=== PATIENT | female | born 1965 | race African-American/Black ===

== ENCOUNTER → 2019-03-06 | Day surgery (SDC) | payer OTHER ==
--- NOTE | 2019-03-07 15:57 | PATH ---
Surgical Pathology Report Patient Name: PACHECO RAMOS [facility]. Rec. #: [id number] /Age/Gender: 1965 (Age: 53) / F Account: [id number] Location: RADIOLOGY [facility] Taken: 03/06/2019 Received: 03/06/2019 Reported: 03/07/2019 Physicians: Marisol Lainez M.D. Specimen(s) Received LEFT BREAST 4:00 3CM MASS U/S GUIDED CORE BX Clinical History Nonpalpable lesion Ultrasound findings: Highly suspicious/malignant Final Diagnosis LEFT BREAST, 4:00, ULTRASOUND GUIDED NEEDLE CORE BIOPSY: POORLY DIFFERENTIATED INVASIVE DUCTAL CARCINOMA WITH AREAS WITH AN INVASIVE MICROPAPILLARY PATTERN, MEASURING UP TO 0.9 CM IN LENGTH MEASURED ON THE SLIDE. Results of Estrogen Receptor (ER) and Progesterone Receptor (NM) studies performed at [facility] are as follows: ER (clone [id number] mouse monoclonal antibody by [employer]): 80% nuclear staining with moderate intensity (Positive). NM (clone16 mouse monoclonal antibody by [employer]): 80 % nuclear staining with strong intensity (Positive). Positive and negative controls (internal if applicable) show appropriate results. Formalin fixation and cold ischemic times are within current ASCO/CAP recommendations for ER, NM and Her2 testing. Comment: This case was discussed with Dr. Simons on March 07, 2019. Results of Her2 and Ki67 studies will be reported separately in an addendum. Electronically Signed Harpreet Vega M.D. Addendum Reported: 03/09/2019 Addendum Diagnosis Results of Her2 (IHC) & Ki-67 studies performed at [place], [place] ([id number]) are as follows: Her2 IHC (EP3 from [employer], formerly known as [id number], using Sanders Polymer Refine detection kit): 2+ Equivocal Ki-67:~25% (intermediate proliferative index) Positive and negative controls (internal if applicable) show appropriate results. Results of Her2 FISH studies will be reported separately in an addendum. Harpreet Vega M.D. Gross Description Received in formalin labeled "left 4:00," are 3 france-yellow, cylindrical portions of fibroadipose tissue ranging from 0.9-1.1 cm in length and averaging 0.1 cm in diameter. The specimens are submitted in toto in one cassette. Time to formalin fixation: Less than one minute Total formalin fixation time: Approximately 7 hours. DL03/06/2019 [facility]03/06/2019
== END | disposition home or self-care (01) ==
LOC: JRADUS-SUR 10:08
PROVIDERS: ATTEND Internal Medicine
PROC: 0HBU3ZX Excision of Left Breast, Percutaneous Approach, Diagnostic (ICD-10-PCS; principal; 2019-03-06)
DX: C50.912 Malignant neoplasm of unspecified site of left female breast (principal); Z17.0 Estrogen receptor positive status [ER+]
CPT/HCPCS: 19083; 88305-TC; 88342-TC

== ENCOUNTER 2019-04-11 12:31 | Day surgery (SDC) | payer OTHER ==
[2019-04-07 15:05] VITALS: BMI 31.9
[2019-04-11] MEDS ORDERED: LIDOCAINE HCL 1%, 10 MG/ML (20ML VIAL) ONE ×2 (13:14→15:23)
[2019-04-11] MEDS ORDERED: HEPARIN NA (PORCINE) 5,000 UNITS/ML 1ML VIAL ONE (13:14)
[2019-04-11] MEDS ORDERED: MIDAZOLAM HCL 2 MG/2 ML SINGLE DOSE VIAL ONE (13:20)
[2019-04-11] MEDS ORDERED: KETOROLAC TROMETHAMINE 30 MG/1 ML VIAL IVPUSH PRN (13:47)
[2019-04-11] MEDS ORDERED: ONDANSETRON 4 MG/2 ML VIAL IVPUSH PRN (13:47)
[2019-04-11] MEDS ORDERED: SUCCINYLCHOLINE CHLORIDE 200 MG/10 ML SYRINGE ONE (13:53)
[2019-04-11] MEDS ORDERED: ceFAZolin SODIUM 1 GM VIAL ONE (13:53)
[2019-04-11] MEDS ORDERED: DEXAMETHASONE SOD PHOSPHATE 4 MG/1 ML VIAL ONE (13:55)
[2019-04-11] MEDS ORDERED: DEXTROSE 5%-0.45% SALINE 1,000 ML IV SCH (14:00)
[2019-04-11] MEDS ORDERED: PROPOFOL 20 ML ONE ×3 (14:17→15:00)
[2019-04-11] MEDS ORDERED: BUPIVACAINE HCL/PF 0.5% (5MG/ML) 10 ML VIAL ONE (15:25)
[2019-04-11] MEDS ORDERED: oxyCODONE HCL 5 MG TABLET PO PRN ×2 (16:29→16:30)
[2019-04-11] MEDS ORDERED: LACTATED RINGERS SOLUTION 1,000 ML IV SCH (16:30)
[2019-04-11 16:59] VITALS: PULSE 64
[2019-04-11 17:38] VITALS: BP 130/84; TEMP 98
--- NOTE | 2019-04-11 22:36 | OP ---
DATE OF OPERATION: 04/11/2019 PREOPERATIVE DIAGNOSIS: Left breast cancer, low outer quadrant. POSTOPERATIVE DIAGNOSIS: Left breast cancer, low outer quadrant. PROCEDURE: Right internal jugular Port-A-Cath placement using Seldinger technique under fluoroscopy for IV venous access and chemotherapy. ANESTHESIA: Local with IV sedation. SURGEON: Jared Sheppard MD. STEAM PLANT RECORDS CLERK: ИВАН Richards. COMPLICATIONS: There were no complications. DESCRIPTION OF PROCEDURE: Briefly, the patient is a 53-year-old G4, P4, post menopausal female of -[place]izen [place] descent with a family history with her mother had breast cancer at age 43. The patient was found to have a density in the lower outer aspect of the left breast which was seen on ultrasound measuring about 2.3 x 1.4 cm. An ultrasound guided core biopsy showed a poorly differentiated invasive ductal cancer which was ER/AL positive but HER2 positive by FISH with a Ki-67 of 25%. MRI showed satellite lesions in the lateral aspect of the left breast, and she was seen by medical oncology and it was decided to move forward with neoadjuvant chemotherapy. She comes in now for Port-A-Cath placement for IV access. The patient was brought to the holding area for ambulatory surgery on April 11, 2019. In the holding area, site verification was made and informed consent was obtained. She was brought into the operating room and laid on the OR table in a supine position. She had compression stockings placed on the lower extremities, was given IV sedation, and the right upper chest wall and neck were sterilely prepped and draped in usual fashion. She was given a gram of Ancef prior to incision. She had the right arm tucked at her side and had a rolled sheet placed under her midline spine. Once she was properly anesthetized 1% lidocaine was given underneath the right clavicle. An attempt was made to access the right subclavian vein. We used ultrasound, still were not able to access the subclavian vein on the right side. At this point, it was felt that an IJ line would be needed, and under ultrasound guidance the right internal jugular vein was eventually accessed and wire threaded down into the superior vena cava under fluoroscopy without difficulty. The wire was clipped to the drape. At this point, more 1% lidocaine was given underneath the right clavicle, and a 3-cm incision was made, and dissection was undertaken to form an infraclavicular pocket. Hemostasis was achieved. The catheter was then tunneled between the infraclavicular pocket to the access site in the right neck using tonsil clamp as well as the tunneler. A small incision had to be made in between the tunnel to get the catheter threaded completely. The catheter was then cut to the appropriate length and attached to the Port-A-Cath chamber. This was placed into infraclavicular pocket and sutured in place using 2 separate Prolene sutures. At this point, the tearaway sheath introducer was placed over the wire under fluoroscopy without difficulty, and the wire and the dilator were removed. The catheter was then threaded down to the tearaway sheath, leaving the catheter in good position in the superior vena cava, and the tearaway sheath was torn away. There was a small kink in the catheter which had to be fixed. There was excellent blood flow from the catheter and was flushed with dilute heparin at 10 units per mL. At this point, the Nur needle was used to access the Port-A-Cath chamber, and 1.5 mL of concentrated heparin at 1000 units per mL were instilled into the Port-A-Cath. The wounds were then closed using interrupted 3-0 deep dermal Vicryl suture and a running 4-0 subcuticular Biosyn suture. Mastisol and Steri-Strips were applied over the wound with a compressive dressing placed over this. The patient was awake and alert at the end of the procedure and brought back to the post anesthesia care unit in stable condition. Estimated blood loss was minimal. Postoperative chest x-ray showed the line in good position with no pneumo- or hemothorax, and the line may be used as soon as needed. All sponge and needle counts were correct at the end of the case. The patient will be discharged home the same day, will follow up in the office in 1 week for a formal wound evaluation. JARED SHEPPARD M.D. [id number]
== END 2019-04-11 17:55 | disposition home or self-care (01) ==
LOC: FASU 12:31
PROVIDERS: ATTEND Surgery Surgical Oncology
PROC: B548ZZA Ultrasonography of Superior Vena Cava, Guidance (ICD-10-PCS; 2019-04-11)
PROC: B519ZZZ Fluoroscopy of Inferior Vena Cava (ICD-10-PCS; 2019-04-11)
PROC: 02HV33Z Insertion of Infusion Device into Superior Vena Cava, Percutaneous Approach (ICD-10-PCS; principal; 2019-04-11 14:04)
DX: C50.512 Malignant neoplasm of lower-outer quadrant of left female breast (principal)
CPT/HCPCS: 36561; 76937; 77001; C1751; 71045-TC-FY; 84703; 94760; J1644

== ENCOUNTER 2019-04-21 05:39 | Day surgery (SDC) | payer OTHER ==
[2019-04-21] MEDS ORDERED: DEXAMETHASONE SODIUM PHOSPHATE IVPB ONE (10:00)
[2019-04-21] MEDS ORDERED: [UNRECOGNIZED DRUG - OTHER] IVPB ONE (10:00)
[2019-04-21] MEDS ORDERED: ONDANSETRON IVPB ONE (10:00)
[2019-04-21] MEDS ORDERED: ACETAMINOPHEN 325 MG TABLET (FP) PO ONE (10:00)
[2019-04-21] MEDS ORDERED: TRASTUZUMAB ANNS IVPB ONE (10:30)
[2019-04-21] MEDS ORDERED: SODIUM CHLORIDE IVPB ONE (10:30)
[2019-04-21] MEDS ORDERED: PACLITAXEL 168 MG in SODIUM CHLORIDE 250 ML IVPB ONE (12:00)
[2019-04-21] MEDS ORDERED: PORTA CATH FLUSH 10 ML IVPUSH ONE (16:18)
[2019-04-21 16:30] VITALS: BP 125/70; PULSE 61
[2019-04-21 16:32] VITALS: TEMP 98.5
== END 2019-04-21 15:40 | disposition home or self-care (01) ==
LOC: JONCCHEMO 05:39 → J7W 09:16 → JONCCHEMO 15:40
PROVIDERS: ATTEND Internal Medicine Hematology & Oncology
PROC: 3E04305 Introduction of Other Antineoplastic into Central Vein, Percutaneous Approach (ICD-10-PCS; principal; 2019-04-21)
PROC: 3E043GC Introduction of Other Therapeutic Substance into Central Vein, Percutaneous Approach (ICD-10-PCS; 2019-04-21)
DX: Z51.11 Encounter for antineoplastic chemotherapy (principal); C50.912 Malignant neoplasm of unspecified site of left female breast
CPT/HCPCS: 96367; 96413; 96415; 96417; Q5117

== ENCOUNTER 2019-04-27 09:04 | Day surgery (SDC) | payer OTHER ==
[2019-04-27] MEDS ORDERED: ACETAMINOPHEN 325 MG TABLET (FP) PO ONE (14:00)
[2019-04-27] MEDS ORDERED: DEXAMETHASONE SODIUM PHOSPHATE IVPB ONE (14:00)
[2019-04-27] MEDS ORDERED: [UNRECOGNIZED DRUG - OTHER] IVPB ONE (14:00)
[2019-04-27] MEDS ORDERED: ONDANSETRON IVPB ONE (14:00)
[2019-04-27] MEDS ORDERED: SODIUM CHLORIDE IVPB ONE (14:30)
[2019-04-27] MEDS ORDERED: TRASTUZUMAB ANNS IVPB ONE (14:30)
[2019-04-27 14:59] LABS: BASO % 0.5 % (0-2.0); EOS % 6.3 % (0-4.5); HEMATOCRIT 32.3 % (32.4-45.2); HEMOGLOBIN 10.1 GM/dL (10.7-15.3); LYMPH % 37.5 % (8-40); MCH 25.1 pg (25.7-33.7); MCHC 31.3 g/dl (32.0-36.0); MEAN CELL VOLUME 80.1 fl (80-96); MONO % 2.6 % (3.8-10.2); NEUT % 53.1 % (42.8-82.8); PLATELET COUNT 229 K/MM3 (134-434); RBC 4.04 M/mm3 (3.60-5.2); RDW 14.3 % (11.6-15.6); WHITE BLOOD COUNT 4.5 K/mm3 (4.0-10.0)
[2019-04-27] MEDS ORDERED: PACLITAXEL 168 MG in SODIUM CHLORIDE 250 ML IVPB ONE (15:00)
[2019-04-27 18:16] VITALS: BP 123/57; PULSE 87; TEMP 98.2
[2019-04-27] MEDS ORDERED: PORTA CATH FLUSH 10 ML IVPUSH ONE ×2 (18:22→19:04)
== END 2019-04-27 19:07 | disposition home or self-care (01) ==
LOC: JONCCHEMO 09:04 → J7W 14:11 → JONCCHEMO 19:07
PROVIDERS: ATTEND Nurse Practitioner Family
PROC: 3E04305 Introduction of Other Antineoplastic into Central Vein, Percutaneous Approach (ICD-10-PCS; principal; 2019-04-27)
PROC: 3E043GC Introduction of Other Therapeutic Substance into Central Vein, Percutaneous Approach (ICD-10-PCS; 2019-04-27)
DX: Z51.11 Encounter for antineoplastic chemotherapy (principal); C50.912 Malignant neoplasm of unspecified site of left female breast
CPT/HCPCS: 36415; 85025; 96367; 96413; 96417; Q5117

== ENCOUNTER 2019-05-05 05:52 | Day surgery (SDC) | payer OTHER ==
[2019-05-05] MEDS ORDERED: [UNRECOGNIZED DRUG - OTHER] IVPB ONE (10:00)
[2019-05-05] MEDS ORDERED: ACETAMINOPHEN 325 MG TABLET (FP) PO ONE (10:00)
[2019-05-05] MEDS ORDERED: DEXAMETHASONE SODIUM PHOSPHATE IVPB ONE (10:00)
[2019-05-05] MEDS ORDERED: ONDANSETRON IVPB ONE (10:00)
[2019-05-05] MEDS ORDERED: SODIUM CHLORIDE IVPB ONE (10:30)
[2019-05-05] MEDS ORDERED: TRASTUZUMAB ANNS IVPB ONE (10:30)
[2019-05-05] MEDS ORDERED: PACLITAXEL 168 MG in SODIUM CHLORIDE 250 ML IVPB ONE (11:00)
[2019-05-05] MEDS ORDERED: ACETAMINOPHEN 325 MG TABLET (FP) ONE (14:40)
[2019-05-05 17:28] VITALS: TEMP 98.9
[2019-05-05] MEDS ORDERED: PORTA CATH FLUSH 10 ML IVPUSH ONE (17:28)
[2019-05-05 17:42] VITALS: BP 134/80; PULSE 75
== END 2019-05-05 17:10 | disposition home or self-care (01) ==
LOC: JONCCHEMO 05:52 → J7W 14:07 → JONCCHEMO 17:10
PROVIDERS: ATTEND Nurse Practitioner Family
DX: Z51.11 Encounter for antineoplastic chemotherapy (principal); C50.912 Malignant neoplasm of unspecified site of left female breast
CPT/HCPCS: 96367; 96413; 96417; J2405; Q5117

== ENCOUNTER 2019-09-01 17:46 | Day surgery (SDC) | payer OTHER ==
[2019-09-01 17:03] VITALS: TEMP 97.9
[~2019-09-01 17:46] MED LIST: ACETAMINOPHEN 325 MG TABLET (FP) PO ONE; DIPHENHYDRAMINE 50 MG in SODIUM CHLORIDE 50 ML IVPB ONE; SODIUM CHLORIDE IVPB ONE; TRASTUZUMAB ANNS IVPB ONE
[2019-09-01 18:05] VITALS: BP 159/71; PULSE 66
== END 2019-09-01 17:51 | disposition home or self-care (01) ==
LOC: JONCCHEMO 17:46
PROVIDERS: ATTEND Internal Medicine Hematology & Oncology
DX: Z51.11 Encounter for antineoplastic chemotherapy (principal); C50.912 Malignant neoplasm of unspecified site of left female breast; C77.3 Secondary and unspecified malignant neoplasm of axilla and upper limb lymph nodes; E11.9 Type 2 diabetes mellitus without complications
CPT/HCPCS: 96375; 96413; Q5117

== ENCOUNTER 2019-09-19 07:06 | Day surgery (SDC) | payer OTHER ==
[2019-09-19] MEDS ORDERED: ACETAMINOPHEN 325 MG TABLET (FP) PO ONE (09:30)
[2019-09-19] MEDS ORDERED: DIPHENHYDRAMINE 50 MG in SODIUM CHLORIDE 50 ML IVPB ONE (09:30)
[2019-09-19] MEDS ORDERED: TRASTUZUMAB ANNS IVPB ONE (10:00)
[2019-09-19] MEDS ORDERED: SODIUM CHLORIDE IVPB ONE (10:00)
[2019-09-19 18:28] VITALS: BP 155/86; PULSE 66; TEMP 98.5
[2019-09-19] MEDS ORDERED: PORTA CATH FLUSH 10 ML IVPUSH ONE (18:28)
== END 2019-09-19 18:00 | disposition home or self-care (01) ==
LOC: JONCCHEMO 07:06
PROVIDERS: ATTEND Internal Medicine Hematology & Oncology
DX: Z51.11 Encounter for antineoplastic chemotherapy (principal); C50.912 Malignant neoplasm of unspecified site of left female breast; C77.3 Secondary and unspecified malignant neoplasm of axilla and upper limb lymph nodes; E11.9 Type 2 diabetes mellitus without complications
CPT/HCPCS: 36415; 85610; 96367; 96413; Q5117

== ENCOUNTER 2019-09-21 09:39 | Day surgery (SDC) | payer OTHER ==
[2019-09-13 11:07] VITALS: BMI 32.5
[2019-09-21] MEDS ORDERED: ONDANSETRON 4 MG/2 ML VIAL IVPUSH PRN (10:34)
[2019-09-21] MEDS ORDERED: KETOROLAC TROMETHAMINE 30 MG/1 ML VIAL IVPUSH PRN (10:34)
[2019-09-21] MEDS ORDERED: DEXTROSE 5%-0.45% SALINE 1,000 ML IV SCH (10:45)
[2019-09-21] MEDS ORDERED: fentaNYL CITRATE 250 MCG/5 ML VIAL ONE (12:30)
[2019-09-21] MEDS ORDERED: MIDAZOLAM HCL 2 MG/2 ML SINGLE DOSE VIAL ONE (12:30)
[2019-09-21] MEDS ORDERED: ISOSULFAN BLUE 10 MG/ML VIAL SQ ONE (12:46)
[2019-09-21] MEDS ORDERED: DEXAMETHASONE SOD PHOSPHATE 4 MG/1 ML VIAL ONE (12:55)
[2019-09-21] MEDS ORDERED: ONDANSETRON 4 MG/2 ML VIAL ONE (12:55)
[2019-09-21] MEDS ORDERED: BUPIVACAINE HCL/PF 0.5% (5MG/ML) 10 ML VIAL ONE (13:47)
[2019-09-21] MEDS ORDERED: EPHEDRINE SULFATE/0.9% NACL/PF 50 MG/10 ML SYRINGE NR ONE (14:32)
[2019-09-21] MEDS ORDERED: oxyCODONE HCL 5 MG TABLET PO PRN (14:44)
[2019-09-21] MEDS ORDERED: LACTATED RINGERS SOLUTION 1,000 ML IV SCH (14:45)
[2019-09-21] MEDS ORDERED: ACETAMINOPHEN 1000 MG/100 ML VIAL (NON FORMULARY) IVPB SCH (14:45)
[2019-09-21] MEDS ORDERED: KETOROLAC TROMETHAMINE 30 MG/1 ML VIAL ONE (15:04)
[2019-09-21] MEDS ORDERED: ACETAMINOPHEN INJECTION 100 ML IVPB ONE (15:15)
--- NOTE | 2019-09-21 15:27 | SURG ---
Surgery Bpm Developer Note Bpm Developer: Gaby Cooper PA-C Date of Service: 09/21/19 Diagnosis: Acquired chest wall deformity s/p wide excision lumpectomy/partial mastectomy. Procedure: breast tissue rearrangement with reduction pattern I was present for the entirety of the operative procedure. For further detail, please refer to operative report. Visit type - Case Type Case Type: Scheduled - Emergency Emergency Visit: No - New patient This patient is new to me today: Yes Date on this admission: 09/21/19
--- NOTE | 2019-09-21 15:29 | OP ---
Operative Note - Note: Operative Date: 09/21/19 Pre-Operative Diagnosis: breast cancer Operation: left breast tissue rearrangement with reduction pattern Post-Operative Diagnosis: Same as Pre-op Surgeon: David Hendrix Cannon Crewmember: Gaby Cooper Anesthesiologist/FILLING OPERATOR: Ginette Linares Anesthesia: General Estimated Blood Loss (mls): 100 Fluid Volume Replaced (mls): 1,400 Operative Report Dictated: Yes
--- NOTE | 2019-09-21 16:07 | OP ---
DATE OF OPERATION: 09/21/2019 PREOPERATIVE DIAGNOSIS: Left breast cancer lower outer quadrant, status post neoadjuvant chemotherapy. POSTOPERATIVE DIAGNOSIS: Left breast cancer lower outer quadrant, status post neoadjuvant chemotherapy. PROCEDURE: Left breast partial mastectomy through a reduction mastopexy approach with left axillary sentinel lymph node biopsy and reduction mastopexy. ANESTHESIA: General laryngeal mask airway anesthesia. PRIMARY SURGEON: Bird Diane MD DIRECTOR ADULT: Saima Walter, physician day care assistant COMPLICATIONS: There were no complications. INDICATIONS: Briefly, the patient is a 53-year-old G4, P4 postmenopausal female of descent with a strong family history with her mother who had breast cancer at age 43 and maternal aunts had questionable history of cancer. The patient underwent a mammography and ultrasound in February 2019 showing irregular density in the outer aspect of the left breast 4 o'clock region 6 cm from the nipple measuring 2.4 x 1.4 cm. Ultrasound-guided biopsy in February 2019 showed a poorly differentiated invasive duct cancer which was ER/IN positive, HER-2 positive by FISH with a ratio of 2, total count of 6 and a Ki-67 of 25%. She underwent an MRI showing the main cancer in the lower outer aspect of the left breast with some close satellite lesions and underwent neoadjuvant chemotherapy. She had an excellent response and followup MRI after neoadjuvant chemotherapy showed the cancer to decrease in size to 1.1 x 0.9 x 0.5 cm. She was recommended to undergo surgery and chose to undergo a partial mastectomy and sentinel lymph node biopsy. She was seen by Plastic Surgery preoperatively for reduction mastopexy approach by Dr. Hendrix. PROCEDURE IN DETAIL: The patient was brought in for the procedure on September 21, 2019, and underwent a lymphoscintigraphy at [facility] and then had a Magseed placement at [facility] and was brought to the holding area at [facility]. In the holding area site verification was made and informed consent was obtained. She was marked preoperatively by the plastic surgeon. COVID testing was done preoperatively which was negative. She was brought into the operating room and laid on the OR table in the supine position. Venodynes were placed on the lower extremities prior to induction. She received a gram of Ancef prior to incision. She underwent general laryngeal mask airway anesthesia. Three mL of Lymphazurin blue were injected intradermally around the Magseed placement site and massage was instituted. She was sterilely prepped and draped in the usual fashion. Timeout was performed. The left axillary sentinel lymph node biopsy was first performed and an incision was made just below the hair-bearing area of the left axilla and dissection was undertaken and blue lymphatic was easily seen coursing to 2 blue hot lymph nodes in the level 1 region of the left axilla. The first sentinel lymph node had a 10-second gamma count of 6307 and the second sentinel lymph node had a 10-second gamma count of 44,517. Background count after removal of these 2 nodes was 211. Both nodes felt grossly benign and were sent to Pathology in formalin for permanent section. Hemostasis was achieved and gross inspection of the axilla I could not feel any suspicious nodes. Hemostasis was achieved and the subcutaneous tissues reapproximated using 2-0 plain suture. The skin was closed using interrupted 3-0 deep dermal Vicryl suture and a running 4-0 subcuticular Biosyn suture. At this point the wide excision was undertaken around the lower outer aspect of the left breast using the Sentimag device to isolate the Magseed in the lower outer aspect of the left breast. We used the reduction mastopexy incision marked out by Plastic Surgery and removed this area in the lower outer aspect of the left breast with superficial skin attached. The resection was taken all the way down to the pectoralis major muscle. Specimen was removed and oriented with a long lateral, short superior suture. Specimen radiograph showed removal of the clips in question and the Sentimag device easily identified the stainless steel clip in the specimen. Hemostasis was achieved and the wound was copiously irrigated. Margins were then taken on the superior, inferior, medial, lateral, and deep aspects with sutures marking the biopsy cavity side and each margin was sent separately to Pathology. At this point Dr. Hendrix completed the reduction mastopexy which will be dictated separately by himself and wound closure will be dictated by himself as well. All sponge and needle counts were correct at this point in the case and estimated blood loss was about 20 mL. The patient will complete the reduction mastopexy and then will be recovered in the postanesthesia care unit after laryngeal mask airway tube is removed. She will be recovered and sent home the same day once discharge criteria are met. She is to follow up in the office in 1 week for a formal wound pathology check. BIRD DIANE M.D. [id number]
[2019-09-21] MEDS ORDERED: oxyCODONE HCL 5 MG TABLET ONE (16:23)
[2019-09-21] MEDS ORDERED: oxyCODONE HCL 5 MG TABLET PO ONE (16:25)
[2019-09-21 16:46] VITALS: BP 122/70; PULSE 88; TEMP 97.7
--- NOTE | 2019-09-22 16:02 | OP ---
DATE OF OPERATION: 09/21/2019 SURGEON: Jared Hendrix MD WIRE WALKER SURGEON: Gaby Cooper PA-C PREOPERATIVE DIAGNOSES: 1. Left acquired chest wall deformity status post mastectomy. 2. Asymmetry of chest wall post mastectomy. 3. Personal history of breast carcinoma. 4. History of chemotherapy with neoadjuvant treatment. POSTOPERATIVE DIAGNOSES: 1. Left acquired chest wall deformity status post mastectomy. 2. Asymmetry of chest wall post mastectomy. 3. Personal history of breast carcinoma. 4. History of chemotherapy with neoadjuvant treatment. OPERATIVE PROCEDURE: Immediate left breast [place] utilizing [place]. [id number]. OPERATIVE INDICATIONS: Patient is a young woman who was brought to the operating room by Dr. Jared Diane for left partial mastectomy. The patient presented with a malignancy and was treated with neoadjuvant chemotherapy prior to this admission in order to shrink the tumor and make this amenable to partial mastectomy. Because of the large resection area which was required by Dr. Diane, a reconstruction of the breast with other technique was carried out with tissue rearrangement and advancement flaps to create a shaped breast. Such a large defect required reconstructive techniques. The risks and benefits of surgical versus nonsurgical alternatives as well as the material complications were described to the patient on multiple occasions preoperatively, including today in the holding area where she was marked with Dr. Diane and myself in attendance in order to reconstruct the breast which would be deformed after this procedure. She agreed to the planned procedure. All questions were asked and answered. OPERATIVE PROCEDURE IN DETAIL: The patient was taken to the operating room by Dr. Diane. After being placed supine on the operating room table, the markings for Osman pattern reduction incisions were re-marked and re-measured on the left breast. After sterile prepping and draping in the usual fashion and timeout, attention was turned to the breast. I began the operation by making incisions along the pattern of the reduction pattern in order for Dr. Diane to have access to the large resection of the lateral portion of the breast. He had previously performed a sentinel lymph node biopsy. Dr. Diane then performed a wide partial mastectomy incorporating the lateral portion of the entire left breast into the specimen. Once this was resected, attention was turned to the reconstruction. Reconstruction with other technique was carried out. I began incisions along the pattern of the incisions. A circumareolar disk was cut with 42-mm nipple-areolar cutter around the nipple complex and then deepithelialized the central pedicle of the breast. After deepithelializing the pedicle and creating the pedicle on all sides of the central mound, a large block of tissue was removed on the medial portion of the breast in order to accommodate the reconstruction. This tissue was scheduled for pathologic diagnosis, and the dissection was carried superiorly along the chest wall up to the clavicular area in order to undermine the tissue to advance and rotate the breast into its new position. Copious irrigation and hemostasis was particularly obtained throughout the pocket, and then a central pedicle was fashioned. The lateral defect, which measured 25 x 15 cm in greatest dimensions, was filled and rotated into a new position and centralizing the nipple in a superior position. Advancement flaps were then created towards the midline and tacked into position using 0 nylon sutures on the castellanos point and then stapled into position, advancing the lateral tissue onto itself. Multiple layers of sutures were used to accomplish the reconstruction. Deep sutures were placed with 2-0 Vicryl suture for the central mound and inferior portions, and then 3-0 PDS in multiple interrupted sutures were carried around the nipple-areolar complex down vertically and then laterally and medially. A 3rd layer of 4-0 Biosyn suture was placed in order to reconstruct the tissue, advanced and closed upon itself. Once this was accomplished, the reconstruction showed good shape and contour, and all wounds were dressed sterilely with Dermabond, Steri-Strips, and a compressive dressing with a Surgi-Bra. She tolerated the procedure well. She was taken to recovery room in satisfactory condition. JARED HENDRIX M.D. [id number]
--- NOTE | 2019-09-26 15:09 | PATH ---
Surgical Pathology Report Patient Name: PACHECO RAMOS [facility]. Rec. #: [id number] /Age/Gender: 1965 (Age: 53) / F Account: [id number] Location: [facility] AMBULATORY Taken: 09/21/2019 Received: 09/21/2019 Reported: 09/26/2019 Physicians: Bird Diane M.D. Specimen(s) Received A: LEFT BREAST WIDE EXCISION B: LEFT AXILLARY SENTINEL NODE # 1 C: LEFT AXILLARY SENTINEL NODE # 2 D: LEFT BREAST POSTERIOR MARGIN E: LEFT BREAST MEDIAL MARGIN F: LEFT BREAST LATERAL MARGIN G: LEFT BREAST INFERIOR MARGIN H: LEFT BREAST SUPERIOR MARGIN I: LEFT BREAST TISSUE Clinical History Invasive Her 2+ status post neoadjuvant chemotherapy Final Diagnosis A. LEFT BREAST, WIDE EXCISION: INVASIVE DUCTAL CARCINOMA, POORLY DIFFERENTIATED (TUBULE SCORE 3/3, NUCLEAR GRADE: 3/3, MITOTIC SCORE: 2/3, TOTAL SCORE 8/9, KEENAN GRADE 3), MEASURING 1.6 CM IN GREATEST DIMENSION, MICROSCOPICALLY. INVASIVE CARCINOMA PRESENT IN A BACKGROUND OF DENSE HYALINIZING FIBROSIS CONSISTENT WITH PARTIALLY TREATED TUMOR BED TISSUE; INVASIVE CARCINOMA COMPRISES APPROXIMATELY 50% OF FIBROTIC TUMOR BED TISSUE, IN ASSOCIATION WITH TUMOR-INFILTRATING LYMPHOCYTES. DUCTAL CARCINOMA IN SITU (DCIS) PRESENT, HIGH NUCLEAR GRADE, SOLID PATTERN. SURGICAL MARGINS ARE UNINVOLVED BY CARCINOMA. INVASIVE CARCINOMA IS AT 5 MM FROM THE CLOSEST (LATERAL) MARGIN. DCIS IS AT 10MM FROM THE CLOSEST (MEDIAL) MARGIN. ALSO SEE SPECIMENS D TO H FOR FINAL MARGINS. LYMPHOVASCULAR INVASION IS IDENTIFIED. PRIOR BIOPSY SITE WITH REACTIVE CHANGES. PATHOLOGIC STAGE (pTNM): ypT1c ypN (sn) 1a SEE ALSO INVASIVE CARCINOMA CASE SUMMARY BELOW. Comment: Immunohistochemical stains (block A1) performed and interpreted at [facility] show the following results: smooth muscle myosin heavy chain and p63 show loss of the myoepithelial cell layer in the areas of invasive carcinoma, while highlight the intact myoepithelial cell layer in foci of DCIS. B. LEFT AXILLARY SENTINEL NODE #1, COUNT [id number], EXCISION: ONE LYMPH NODE, POSITIVE FOR METASTATIC CARCINOMA (1/). TUMOR DEPOSIT MEASURES 0.4 CM IN GREATEST DIMENSION. EXTRANODAL EXTENSION IDENTIFIED. C. LEFT AXILLARY SENTINEL NODE #2, COUNT [id number], EXCISION: ONE LYMPH NODE, NEGATIVE FOR METASTATIC CARCINOMA (0/1). D. LEFT BREAST POSTERIOR MARGIN, EXCISION: BENIGN SKELETAL MUSCLE AND FIBROADIPOSE TISSUE. E. LEFT BREAST MEDIAL MARGIN, EXCISION: BENIGN BREAST TISSUE. F. LEFT BREAST LATERAL MARGIN, EXCISION: BENIGN BREAST TISSUE. G. LEFT BREAST INFERIOR MARGIN, EXCISION: BENIGN FIBROADIPOSE TISSUE. H. LEFT BREAST SUPERIOR MARGIN, EXCISION: BENIGN FIBROADIPOSE TISSUE. I. LEFT BREAST TISSUE, EXCISION: BENIGN BREAST TISSUE WITH SCLEROSING ADENOSIS, CYST APOCRINE METAPLASIA, AND STROMAL FIBROSIS. PORTION OF SKIN WITH NO DIAGNOSTIC ABNORMALITIES. Comments Breast Invasive Carcinoma: Surgical Pathology Case Summary (Based on AJCC TNM 8 th edition) Procedure _x_ Excision (less than total mastectomy) Specimen Laterality _x_ Left Tumor Size _x_ Greatest dimension of largest invasive focus >1 mm (millimeters): 16 mm Histologic Type _x_ Invasive carcinoma of no special type, NOS (ductal) Histologic Grade (Keenan Histologic Score) Glandular (Acinar)/Tubular Differentiation _x_ Score 3 (<10% of tumor area forming glandular/tubular structures) Nuclear Pleomorphism _x_ Score 3 Mitotic Rate _x_ Score 2 Overall Grade _x_ Grade 3 (scores of 8 or 9) Tumor Focality _x_ Single focus of invasive carcinoma Ductal Carcinoma In Situ (DCIS) _x_ DCIS is present in specimen _x_ Negative for extensive intraductal component (EIC) Tumor Extension Skin _x_ Skin is present and uninvolved Margins Invasive Carcinoma Margins _x_ Uninvolved by invasive carcinoma Distance from closest margin (millimeters): > 5 mm Closest margin: lateral margin. The invasive carcinoma is at 5 mm from lateral margin in the wide excision (specimen A). Additional lateral margin (specimen F) is negative for carcinoma. DCIS Margins (required only DCIS is present in specimen) _x_ Uninvolved by DCIS Distance from closest margin (millimeters): >10 mm Regional Lymph Nodes _x_ Involved by tumor cells Number of Lymph Nodes with Macrometastases (>2 mm): 1 Number of Lymph Nodes with Micrometastases (>0.2 mm to 2 mm and/or >200 cells): 0 Number of Lymph Nodes with Isolated Tumor Cells (=0.2 mm and =200 cells): 0 Size of Largest Metastatic Deposit (millimeters): 4 mm Extranodal Extension: _x_ Present Extent of extranodal extension _x_=2 mm Treatment Effect in the Breast _x_ Probable or definite response to presurgical therapy in the invasive carcinoma Treatment Effect in the Lymph Nodes _x_ No definite response to presurgical therapy in metastatic carcinoma Lymphovascular Invasion _x_ Present Pathologic Stage Classification (pTNM, AJCC 8th Edition) Primary Tumor (Invasive Carcinoma) (pT) _x_ ypT1c: Tumor >10 mm but =20 mm in greatest dimension Category (pN) _x_ ypN (sn)1a: Metastases in 1 to 3 axillary lymph nodes, at least 1 metastasis larger than 2.0 mm Biomarker Studies Results of ER and WY studies performed on prior biopsy ([id number]) at [facility] are as follows: ER (clone [id number] mouse monoclonal antibody by [employer]): _x_ Positive: 80 % nuclear staining with moderate intensity PgR (clone16 mouse monoclonal antibody by [employer]): _x_ Positive: 80 % nuclear staining with strong intensity Results of Her2 (IHC and FISH) & Ki-67 studies performed on prior biopsy ([id number]) at [place], [place] ([id number]) are as follows: Her2 IHC (EP3 from [employer], formerly known as [id number], using Sanders Polymer Refine detection kit): 2+ (equivocal) Ki67: ~25% (intermediate proliferative index) Her2 (FISH): Her2: 6.6 CEP17: 4.9 Ratio: 1.3 Interpretation: Positive for HER-2 amplification Formalin fixation time exceeds current ASCO/CAP recommendations for ER,PgR & Her2 testing (6-72 hrs). Negative results must be interpreted with caution as false negatives may occur. Cold ischemic time is within recommended guidelines/Time to formalin fixation is not given. Electronically Signed Tip Granados M.D. Gross Description A. Received in formalin, labeled "left breast wide excision," is a 10.0 x 6.5 x 4.2 cm. france-yellow, irregular, portion of fibroadipose tissue. There is no needle localization wire present. There is a short suture marking the superior aspect and a long suture marking the lateral aspect, per the surgeon. The anterior surface displays a 10.0 x 3.8 cm france-brown, irregular, unremarkable portion of skin. The specimen is inked as follows: Superior blue; inferior green; lateral red; medial yellow; deep black. The specimen is serially sectioned from superior to inferior. Sectioning reveals a 0.7 x 0.7 x 0.6 cm france, indurated mass at 1.0 cm from the deep margin and 1.0 cm from the medial margin. There is a foster metallic biopsy clip identified. The remaining margins appear clear of the mass. Home Support Worker sections are submitted in 8 cassettes as follows: 1-full face section of mass with medial and deep margins; 2-additional mass with deep margin; 3-additional fibrous tissue surrounding mass with deep margin; 4-additional medial margin; 5-lateral margin; 6-skin; 7-superior margin; 8-inferior margin. Total formalin fixation time: Approximately 26 hours B. Received in formalin labeled "left axillary sentinel node #1," is a 2.1 x 0.8 x 0.6 cm lymph node with attached fat. The specimen is bisected and entirely submitted in 2 cassettes. C. Received in formalin labeled "left axillary sentinel node #2," is a 1.4 x 1.0 x 0.6 cm lymph node with attached fat. The specimen is bisected and entirely submitted in 2 cassettes. D. Received in formalin labeled "posterior margin left breast," is a 1.8 x 1.6 x 0.8 cm portion of fibroadipose tissue with a suture marking the biopsy cavity side, per the surgeon. The new margin is inked blue and the specimen is serially sectioned. The specimen is entirely submitted in 2 cassettes. E. Received in formalin labeled "medial margin left breast," is a 3.0 x 1.7 x 0.8 cm portion of fibroadipose tissue with a suture marking the biopsy cavity side, per the surgeon. The new margin is inked blue and the specimen is serially sectioned. The specimen is entirely and sequentially submitted in 3 cassettes. F. Received in formalin labeled "lateral margin left breast," is a 2.0 x 1.6 x 0.7 cm portion of fibroadipose tissue with a suture marking the biopsy cavity side, per the surgeon. The new margin is inked blue and the specimen is serially sectioned. The specimen is entirely submitted in 2 cassettes. G. Received in formalin labeled "inferior margin left breast," is a 2.5 x 1.7 x 0.8 cm portion of fibroadipose tissue with a suture marking the biopsy cavity side, per the surgeon. The new margin is inked blue and the specimen is serially sectioned. The specimen is entirely submitted in 2 cassettes. H. Received in formalin labeled "superior margin left breast," is a 2.0 x 1.2 x 0.7 cm portion of fibroadipose tissue with a suture marking the biopsy cavity side, per the surgeon. The new margin is inked blue and the specimen is serially sectioned. The specimen is entirely submitted in 2 cassettes. I. Received in formalin labeled "left breast tissue," is a 142 g, 12.5 x 9.0 x 4.0 cm aggregate of multiple france-yellow, irregular, unoriented portions of fibroadipose tissue and france-brown, unremarkable skin. Sectioning reveals foci of dense white fibrous tissue. Home Support Worker sections are submitted in 3 cassettes. 09/22/2019 saudi09/22/2019
== END 2019-09-21 17:35 | disposition home or self-care (01) ==
LOC: FASU 09:39
PROVIDERS: ATTEND Surgery Surgical Oncology
PROC: 0HBU0ZZ Excision of Left Breast, Open Approach (ICD-10-PCS; principal; 2019-09-21 13:06)
PROC: 0HRU07Z Replacement of Left Breast with Autologous Tissue Substitute, Open Approach (ICD-10-PCS; 2019-09-21 13:06)
DX: C50.512 Malignant neoplasm of lower-outer quadrant of left female breast (principal); Z17.0 Estrogen receptor positive status [ER+]; Z80.3 Family history of malignant neoplasm of breast; Z92.21 Personal history of antineoplastic chemotherapy; M95.4 Acquired deformity of chest and rib; N65.1 Disproportion of reconstructed breast
CPT/HCPCS: 19281; 76098-TC-FY; 78195-TC; 84703; 88305-TC; 88307-TC; 88341-TC; 88342-TC; 94760; A9541; J0131

== ENCOUNTER 2019-10-13 07:26 | Day surgery (SDC) | payer OTHER ==
[2019-10-13] MEDS ORDERED: ACETAMINOPHEN 325 MG TABLET (FP) PO ONE (10:00)
[2019-10-13] MEDS ORDERED: DIPHENHYDRAMINE 50 MG in SODIUM CHLORIDE 50 ML IVPB ONE (10:00)
[2019-10-13] MEDS ORDERED: TRASTUZUMAB ANNS IVPB ONE (10:30)
[2019-10-13] MEDS ORDERED: SODIUM CHLORIDE IVPB ONE (10:30)
[2019-10-13 18:40] VITALS: BP 141/73; PULSE 71; TEMP 97.8
[2019-10-13] MEDS ORDERED: PORTA CATH FLUSH 10 ML IVPUSH ONE (18:40)
== END 2019-10-13 18:43 | disposition home or self-care (01) ==
LOC: JONCCHEMO 07:26
PROVIDERS: ATTEND Internal Medicine Hematology & Oncology
DX: Z51.11 Encounter for antineoplastic chemotherapy (principal); C50.912 Malignant neoplasm of unspecified site of left female breast; C77.3 Secondary and unspecified malignant neoplasm of axilla and upper limb lymph nodes; E11.9 Type 2 diabetes mellitus without complications
CPT/HCPCS: 96367; 96413

== ENCOUNTER 2019-11-03 07:21 | Day surgery (SDC) | payer OTHER ==
[2019-11-03] MEDS ORDERED: ACETAMINOPHEN 325 MG TABLET (FP) PO ONE (09:30)
[2019-11-03] MEDS ORDERED: DIPHENHYDRAMINE 25 MG in SODIUM CHLORIDE 50 ML IVPB ONE (09:30)
[2019-11-03] MEDS ORDERED: ADO TRASTUZUMAB EMTANSINE IVPB ONE (10:00)
[2019-11-03] MEDS ORDERED: SODIUM CHLORIDE IVPB ONE (10:00)
[2019-11-03 18:43] VITALS: PULSE 67; TEMP 98
[2019-11-03] MEDS ORDERED: PORTA CATH FLUSH 10 ML IVPUSH ONE (18:43)
[2019-11-03 19:18] VITALS: BP 148/82
== END 2019-11-03 19:20 | disposition home or self-care (01) ==
LOC: JONCCHEMO 07:21
PROVIDERS: ATTEND Nurse Practitioner Family
DX: Z51.11 Encounter for antineoplastic chemotherapy (principal); C50.912 Malignant neoplasm of unspecified site of left female breast; E11.9 Type 2 diabetes mellitus without complications
CPT/HCPCS: 96367; 96413; J9354

== ENCOUNTER 2019-11-24 17:51 | Day surgery (SDC) | payer OTHER ==
[2019-11-24 17:24] VITALS: TEMP 98.3
[~2019-11-24 17:51] MED LIST changes: +ADO TRASTUZUMAB EMTANSINE IVPB ONE; +DEXAMETHASONE SOD PHOSPHATE 10 MG/1 ML VIAL IVPUSH ONE; +DIPHENHYDRAMINE 25 MG in SODIUM CHLORIDE 50 ML IVPB ONE; -DIPHENHYDRAMINE 50 MG in SODIUM CHLORIDE 50 ML IVPB ONE; +PORTA CATH FLUSH 10 ML IVPUSH ONE; -SODIUM CHLORIDE IVPB ONE; -TRASTUZUMAB ANNS IVPB ONE; +[UNRECOGNIZED DRUG - OTHER] IVPB ONE
[2019-11-24 18:13] VITALS: BP 130/63; PULSE 64
== END 2019-11-24 18:25 | disposition home or self-care (01) ==
LOC: JONCCHEMO 17:51
PROVIDERS: ATTEND Internal Medicine Hematology & Oncology
DX: Z51.11 Encounter for antineoplastic chemotherapy (principal); C50.912 Malignant neoplasm of unspecified site of left female breast; C77.3 Secondary and unspecified malignant neoplasm of axilla and upper limb lymph nodes; E11.9 Type 2 diabetes mellitus without complications
CPT/HCPCS: 96375; 96413; J1100; J9354

== ENCOUNTER 2019-12-15 16:30 | Day surgery (SDC) | payer OTHER ==
[~2019-12-15 16:30] MED LIST changes: -DEXAMETHASONE SOD PHOSPHATE 10 MG/1 ML VIAL IVPUSH ONE; +DEXAMETHASONE SODIUM PHOSPHATE 10 MG, DIPHENHYDRAMINE 25 MG in SODIUM CHLORIDE 100 ML IVPB ONE; -DIPHENHYDRAMINE 25 MG in SODIUM CHLORIDE 50 ML IVPB ONE; -PORTA CATH FLUSH 10 ML IVPUSH ONE; +POTASSIUM CHLORIDE TABS 20 MEQ TABLET.ER (FP) PO ONE
[2019-12-15 17:46] VITALS: BP 133/67; PULSE 66
[2019-12-15] MEDS ORDERED: PORTA CATH FLUSH 10 ML IVPUSH ONE (17:46)
[2019-12-15 18:09] VITALS: TEMP 98.1
--- OUTSIDE RECORDS SUMMARY | 2019-12-15 18:20 | XMS ---
:1965 Author Organization [facility] Support Name Relationship Address Phone FABIAN COOK [address] [place] [address] [facility] Unavailable [address] [place] [address] [facility]available [address] [place] [address] AMANDA LAZO SISTER [address] [place] [address] Re-disclosure Warning The records that you are about to access may contain information from federally- assisted alcohol or drug abuse programs. If such information is present, then the following federally mandated warning applies: This information has been disclosed to you from records protected by federal confidentiality rules (42 CFR part 2). The federal rules prohibit you from making any further disclosure of this information unless further disclosure is expressly permitted by the written consent of the person to whom it pertains or as otherwise permitted by 42 CFR part 2. A general authorization for the release of medical or other information is NOT sufficient for this purpose. The Federal rules restrict any use of the information to criminally investigate or prosecute any alcohol or drug abuse patient.The records that you are about to access may contain highly sensitive health information, the redisclosure of which is protected by Article 27-F of the [place] State Public Health law. If you continue you may haveaccess to information: Regarding HIV / AIDS; Provided by facilities licensed or operated by the [facility] Office of Mental Health; or Provided by the [facility] Office for People With Developmental Disabilities. If such information is present, then the following [facility] mandated warning applies: This information has been disclosed to you from confidential records which are protected by state law. State law prohibits you from making any further disclosure of this information without the specific written consent of the person to whom it pertains, or as otherwise permitted by law. Any unauthorized further disclosure in violation of state law may result in a fine or intermediate sentence or both. A general authorization for the release of medical or other information is NOT sufficient authorization for further disclosure. Insurance Providers Payer name Policy type Policy ID Covered Covered alliance party's Policy P grayson / Coverage alliance party ID relationship to [place] Inf ormation type bart[place] LOCAL [id number] - [id number] SP [id number] [facility] [id number] - [id number] SP [id number] [facility] Results ID Date Data Source [id number] 11/10/2019 11:15:00 AM EDT [facility] Name Value Range Interpretation Description Data Sup porting Code Source(s) Document(s ) SARS [facility] coronavirus 2 RNA This lab was ordered by [facility] and reported by [facility]. ID Date Data Source [id number] 09/18/2019 12:20:00 PM EDT [facility] Name Value Range Interpretation Description Data Sup porting Code Source(s) Document(s ) SARS [facility] coronavirus 2 RNA This lab was ordered by [facility] and reported by [facility]. Procedure
== END 2019-12-15 18:17 | disposition home or self-care (01) ==
LOC: JONCCHEMO 16:30
PROVIDERS: ATTEND Internal Medicine Hematology & Oncology
DX: Z51.11 Encounter for antineoplastic chemotherapy (principal); C50.912 Malignant neoplasm of unspecified site of left female breast; C77.3 Secondary and unspecified malignant neoplasm of axilla and upper limb lymph nodes; E11.9 Type 2 diabetes mellitus without complications
CPT/HCPCS: 96367; 96413; J9354

== ENCOUNTER 2020-01-05 09:37 | Day surgery (SDC) | payer OTHER ==
[2020-01-05] MEDS ORDERED: DEXAMETHASONE SODIUM PHOSPHATE 6 MG, DIPHENHYDRAMINE 25 MG in SODIUM CHLORIDE 100 ML IVPB ONE (11:00)
[2020-01-05] MEDS ORDERED: ACETAMINOPHEN 325 MG TABLET (FP) PO ONE (11:00)
[2020-01-05] MEDS ORDERED: [UNRECOGNIZED DRUG - OTHER] IVPB ONE (12:00)
[2020-01-05] MEDS ORDERED: ADO TRASTUZUMAB EMTANSINE IVPB ONE (12:00)
[2020-01-05 16:54] VITALS: TEMP 98.3
[2020-01-05 18:01] VITALS: BP 125/63; PULSE 71
== END 2020-01-05 18:00 | disposition home or self-care (01) ==
LOC: JONCCHEMO 09:37
PROVIDERS: ATTEND Internal Medicine Hematology & Oncology
DX: Z51.11 Encounter for antineoplastic chemotherapy (principal); C50.912 Malignant neoplasm of unspecified site of left female breast; C77.3 Secondary and unspecified malignant neoplasm of axilla and upper limb lymph nodes
CPT/HCPCS: 96367; 96413; J9354

== ENCOUNTER 2020-02-27 08:59 | Day surgery (SDC) | payer OTHER ==
[2020-02-27] MEDS ORDERED: ACETAMINOPHEN 325 MG TABLET (FP) PO ONE (09:30)
[2020-02-27] MEDS ORDERED: DEXAMETHASONE SODIUM PHOSPHATE 6 MG, DIPHENHYDRAMINE 25 MG in SODIUM CHLORIDE 100 ML IVPB ONE (09:30)
[2020-02-27] MEDS ORDERED: ADO TRASTUZUMAB EMTANSINE IVPB ONE (10:00)
[2020-02-27] MEDS ORDERED: [UNRECOGNIZED DRUG - OTHER] IVPB ONE (10:00)
[2020-02-27 17:24] VITALS: TEMP 98.3
[2020-02-27 17:57] VITALS: BP 124/71; PULSE 77
== END 2020-02-27 18:15 | disposition home or self-care (01) ==
LOC: JONCCHEMO 08:59
PROVIDERS: ATTEND Internal Medicine Hematology & Oncology
DX: Z51.11 Encounter for antineoplastic chemotherapy (principal); C50.919 Malignant neoplasm of unspecified site of unspecified female breast
CPT/HCPCS: 96367; 96413; J9354

== ENCOUNTER 2020-03-22 08:37 | Day surgery (SDC) | payer OTHER ==
[2020-03-22] MEDS ORDERED: ACETAMINOPHEN 325 MG TABLET (FP) PO ONE (10:00)
[2020-03-22] MEDS ORDERED: DEXAMETHASONE SODIUM PHOSPHATE 6 MG, DIPHENHYDRAMINE 25 MG in SODIUM CHLORIDE 100 ML IVPB ONE (10:00)
[2020-03-22] MEDS ORDERED: ADO TRASTUZUMAB EMTANSINE IVPB ONE (10:30)
[2020-03-22] MEDS ORDERED: [UNRECOGNIZED DRUG - OTHER] IVPB ONE (10:30)
[2020-03-22 19:12] VITALS: BP 124/58; PULSE 84; TEMP 97.8
[2020-03-22] MEDS ORDERED: PORTA CATH FLUSH 10 ML IVPUSH ONE (19:14)
== END 2020-03-22 17:50 | disposition home or self-care (01) ==
LOC: JONCCHEMO 08:37
PROVIDERS: ATTEND Internal Medicine Hematology & Oncology
DX: Z51.11 Encounter for antineoplastic chemotherapy (principal); C50.919 Malignant neoplasm of unspecified site of unspecified female breast
CPT/HCPCS: 96367; 96413; J9354

== ENCOUNTER 2020-04-12 06:53 | Day surgery (SDC) | payer OTHER ==
[2020-04-12] MEDS ORDERED: DEXAMETHASONE SODIUM PHOSPHATE 6 MG, DIPHENHYDRAMINE 25 MG in SODIUM CHLORIDE 100 ML IVPB ONE (09:30)
[2020-04-12] MEDS ORDERED: ACETAMINOPHEN 325 MG TABLET (FP) PO ONE (09:30)
[2020-04-12] MEDS ORDERED: ADO TRASTUZUMAB EMTANSINE IVPB ONE (10:00)
[2020-04-12] MEDS ORDERED: [UNRECOGNIZED DRUG - OTHER] IVPB ONE (10:00)
[2020-04-12 17:21] VITALS: TEMP 99.5
[2020-04-12 17:22] VITALS: BP 107/50; PULSE 80
== END 2020-04-12 17:28 | disposition home or self-care (01) ==
LOC: JONCCHEMO 06:53
PROVIDERS: ATTEND Internal Medicine Hematology & Oncology
DX: Z51.11 Encounter for antineoplastic chemotherapy (principal); C50.919 Malignant neoplasm of unspecified site of unspecified female breast
CPT/HCPCS: 96367; 96413; J9354

== ENCOUNTER 2020-05-03 06:36 | Day surgery (SDC) | payer OTHER ==
[2020-05-03] MEDS ORDERED: ACETAMINOPHEN 325 MG TABLET (FP) PO ONE (09:30)
[2020-05-03] MEDS ORDERED: DEXAMETHASONE SODIUM PHOSPHATE 6 MG, DIPHENHYDRAMINE 25 MG in SODIUM CHLORIDE 100 ML IVPB ONE (09:30)
[2020-05-03] MEDS ORDERED: ADO TRASTUZUMAB EMTANSINE IVPB ONE (10:00)
[2020-05-03] MEDS ORDERED: [UNRECOGNIZED DRUG - OTHER] IVPB ONE (10:00)
[2020-05-03] MEDS ORDERED: PORTA CATH FLUSH 10 ML IVPUSH ONE (17:44)
[2020-05-03 17:54] VITALS: BP 131/71; PULSE 72
[2020-05-03 17:58] VITALS: TEMP 98.4
== END 2020-05-03 17:59 | disposition home or self-care (01) ==
LOC: JONCCHEMO 06:36
PROVIDERS: ATTEND Internal Medicine Hematology & Oncology
DX: Z51.11 Encounter for antineoplastic chemotherapy (principal); C50.919 Malignant neoplasm of unspecified site of unspecified female breast
CPT/HCPCS: 96367; 96413; J9354

== ENCOUNTER 2020-05-24 07:13 | Day surgery (SDC) | payer OTHER ==
[2020-05-24] MEDS ORDERED: DEXAMETHASONE SODIUM PHOSPHATE 6 MG, DIPHENHYDRAMINE 25 MG in SODIUM CHLORIDE 100 ML IVPB ONE (10:00)
[2020-05-24] MEDS ORDERED: ACETAMINOPHEN 325 MG TABLET (FP) PO ONE (10:00)
[2020-05-24] MEDS ORDERED: ADO TRASTUZUMAB EMTANSINE IVPB ONE (10:30)
[2020-05-24] MEDS ORDERED: [UNRECOGNIZED DRUG - OTHER] IVPB ONE (10:30)
[2020-05-24 16:45] VITALS: TEMP 98.5
[2020-05-24 17:40] VITALS: BP 143/75; PULSE 69
== END 2020-05-24 17:41 | disposition home or self-care (01) ==
LOC: JONCCHEMO 07:13
PROVIDERS: ATTEND Internal Medicine Hematology & Oncology
DX: Z51.11 Encounter for antineoplastic chemotherapy (principal); C50.919 Malignant neoplasm of unspecified site of unspecified female breast
CPT/HCPCS: 96375; 96413; J9354

== ENCOUNTER 2020-06-14 07:23 | Day surgery (SDC) | payer OTHER ==
[2020-06-14] MEDS ORDERED: DEXAMETHASONE SODIUM PHOSPHATE 6 MG, DIPHENHYDRAMINE 25 MG in SODIUM CHLORIDE 100 ML IVPB ONE (09:30)
[2020-06-14] MEDS ORDERED: ACETAMINOPHEN 325 MG TABLET (FP) PO ONE (09:30)
[2020-06-14] MEDS ORDERED: ADO TRASTUZUMAB EMTANSINE IVPB ONE (10:00)
[2020-06-14] MEDS ORDERED: [UNRECOGNIZED DRUG - OTHER] IVPB ONE (10:00)
[2020-06-14 17:18] VITALS: TEMP 98.7
[2020-06-14 18:00] VITALS: BP 148/72; PULSE 72
== END 2020-06-14 18:01 | disposition home or self-care (01) ==
LOC: JONCCHEMO 07:23
PROVIDERS: ATTEND Internal Medicine Hematology & Oncology
DX: Z51.11 Encounter for antineoplastic chemotherapy (principal); C50.919 Malignant neoplasm of unspecified site of unspecified female breast
CPT/HCPCS: 96367; 96413; J9354

== ENCOUNTER 2020-07-05 07:00 | Day surgery (SDC) | payer OTHER ==
[2020-07-05] MEDS ORDERED: ACETAMINOPHEN 325 MG TABLET (FP) PO ONE (10:00)
[2020-07-05] MEDS ORDERED: DEXAMETHASONE SODIUM PHOSPHATE 6 MG, DIPHENHYDRAMINE 25 MG in SODIUM CHLORIDE 100 ML IVPB ONE (10:00)
[2020-07-05] MEDS ORDERED: [UNRECOGNIZED DRUG - OTHER] IVPB ONE (10:30)
[2020-07-05] MEDS ORDERED: ADO TRASTUZUMAB EMTANSINE IVPB ONE (10:30)
[2020-07-05 17:13] VITALS: TEMP 98.1
[2020-07-05] MEDS ORDERED: PORTA CATH FLUSH 10 ML IVPUSH ONE (17:13)
[2020-07-05 18:01] VITALS: BP 136/71; PULSE 67
== END 2020-07-05 18:02 | disposition home or self-care (01) ==
LOC: JONCCHEMO 07:00
PROVIDERS: ATTEND Internal Medicine Hematology & Oncology
DX: Z51.11 Encounter for antineoplastic chemotherapy (principal); C50.919 Malignant neoplasm of unspecified site of unspecified female breast
CPT/HCPCS: 96367; 96413; J9354

== ENCOUNTER → 2020-07-23 | Day surgery (SDC) | payer OTHER | END | disposition home or self-care (01) | LOC: FRADUS-SUR 10:51 | PROVIDERS: ATTEND Surgery Surgical Oncology | PROC: 0H9U3ZX Drainage of Left Breast, Percutaneous Approach, Diagnostic (ICD-10-PCS; principal; 2020-07-23) | DX: D24.2 Benign neoplasm of left breast (principal); N63.0 Unspecified lump in unspecified breast; Z85.3 Personal history of malignant neoplasm of breast | CPT/HCPCS: 19085; 77065-TC; 88305-TC; A9579; C1887 ==

== ENCOUNTER 2020-07-26 08:49 | Day surgery (SDC) | payer OTHER ==
[2020-07-26] MEDS ORDERED: DEXAMETHASONE SODIUM PHOSPHATE 6 MG, DIPHENHYDRAMINE 25 MG in SODIUM CHLORIDE 100 ML IVPB ONE (10:00)
[2020-07-26] MEDS ORDERED: ACETAMINOPHEN 325 MG TABLET (FP) PO ONE (10:00)
[2020-07-26] MEDS ORDERED: [UNRECOGNIZED DRUG - OTHER] IVPB ONE (10:30)
[2020-07-26] MEDS ORDERED: ADO TRASTUZUMAB EMTANSINE IVPB ONE (10:30)
[2020-07-26 17:33] VITALS: TEMP 98.5
[2020-07-26 18:59] VITALS: BP 150/77; PULSE 69
== END 2020-07-26 19:01 | disposition home or self-care (01) ==
LOC: JONCCHEMO 08:49
PROVIDERS: ATTEND Internal Medicine Hematology & Oncology
DX: Z51.11 Encounter for antineoplastic chemotherapy (principal); C50.919 Malignant neoplasm of unspecified site of unspecified female breast
CPT/HCPCS: 96367; 96413; J9354

== ENCOUNTER 2020-08-16 07:18 | Day surgery (SDC) | payer OTHER ==
[2020-08-16] MEDS ORDERED: DEXAMETHASONE SODIUM PHOSPHATE 6 MG, DIPHENHYDRAMINE 25 MG in SODIUM CHLORIDE 100 ML IVPB ONE (09:30)
[2020-08-16] MEDS ORDERED: ACETAMINOPHEN 325 MG TABLET (FP) PO ONE (09:30)
[2020-08-16] MEDS ORDERED: [UNRECOGNIZED DRUG - OTHER] IVPB ONE (10:00)
[2020-08-16] MEDS ORDERED: ADO TRASTUZUMAB EMTANSINE IVPB ONE (10:00)
[2020-08-16 18:08] VITALS: TEMP 98.2
[2020-08-16 18:35] VITALS: BP 147/73; PULSE 65
== END 2020-08-16 18:36 | disposition home or self-care (01) ==
LOC: JONCCHEMO 07:18
PROVIDERS: ATTEND Internal Medicine Hematology & Oncology
DX: Z51.11 Encounter for antineoplastic chemotherapy (principal); C50.919 Malignant neoplasm of unspecified site of unspecified female breast
CPT/HCPCS: 96367; 96413; J9354

== ENCOUNTER 2020-10-03 07:16 | Day surgery (SDC) | payer OTHER ==
[2020-10-03] MEDS ORDERED: LIDOCAINE HCL 1%, 10 MG/ML (20ML VIAL) ID ONE (10:00)
[2020-10-03] MEDS ORDERED: GOSERELIN ACETATE 3.6 MG IMPLANT SYRINGE SQ ONE (10:00)
[2020-10-03 18:30] VITALS: BP 143/71; PULSE 56; TEMP 97.9
== END 2020-10-03 18:00 | disposition home or self-care (01) ==
LOC: JONCCHEMO 07:16
PROVIDERS: ATTEND Internal Medicine Hematology & Oncology
DX: Z51.11 Encounter for antineoplastic chemotherapy (principal); C50.919 Malignant neoplasm of unspecified site of unspecified female breast
CPT/HCPCS: 96402; J9202

== ENCOUNTER 2020-10-31 07:47 | Day surgery (SDC) | payer OTHER ==
[2020-10-31] MEDS ORDERED: GOSERELIN ACETATE 3.6 MG IMPLANT SYRINGE SQ ONE (10:00)
[2020-10-31] MEDS ORDERED: LIDOCAINE HCL 1%, 10 MG/ML (20ML VIAL) ID ONE (10:00)
[2020-10-31 10:38] LABS: BASO % 0.6 % (0-2.0); EOS % 6.7 % (0-4.5); HEMATOCRIT 33.7 % (32.4-45.2); HEMOGLOBIN 10.8 GM/dL (10.7-15.3); LYMPH % 38.9 % (8-40); MCH 24.7 pg (25.7-33.7); MCHC 32.1 g/dl (32.0-36.0); MEAN CELL VOLUME 77.1 fl (80-96); MEAN PLT VOLUME 8.2 fl (7.5-11.1); MONO % 7.9 % (3.8-10.2); NEUT % 45.9 % (42.8-82.8); PLATELET COUNT 214 10^3/uL (134-434); RBC 4.38 M/mm3 (3.60-5.2); WHITE BLOOD COUNT 4.5 K/mm3 (4.0-10.0)
[2020-10-31 10:58] LABS: ALBUMIN 3.5 g/dl (3.4-5.0); BLOOD UREA NITROGEN 14.8 mg/dL (7-18); MAGNESIUM 1.9 mg/dL (1.8-2.4)
[2020-10-31 11:00] LABS: BILIRUBIN,DIRECT 0.1 mg/dL (0.0-0.2)
[2020-10-31 11:01] LABS: CREATININE 0.9 mg/dL (0.55-1.3)
[2020-10-31 11:02] LABS: BILIRUBIN,TOTAL 0.4 mg/dL (0.2-1); TOT PROT 7.6 g/dl (6.4-8.2)
[2020-10-31 17:01] VITALS: BP 143/60; TEMP 98.4
[2020-10-31 17:02] VITALS: PULSE 74
[2020-11-01 10:09] LABS: CARCINOEMBRYONIC ANTIGEN 2.6 ng/mL (0.0-4.7); LUTEINIZING HORMONE 1.5 mIU/mL (.)
== END 2020-10-31 17:04 | disposition home or self-care (01) ==
LOC: JONCCHEMO 07:47
PROVIDERS: ATTEND Internal Medicine Hematology & Oncology
DX: Z51.11 Encounter for antineoplastic chemotherapy (principal); C50.512 Malignant neoplasm of lower-outer quadrant of left female breast; Z17.0 Estrogen receptor positive status [ER+]
CPT/HCPCS: 36415; 80048; 80076; 82378; 82670; 83001; 83002; 83735; 84703; 85025; 96402; J9202

== ENCOUNTER 2020-11-28 07:37 | Day surgery (SDC) | payer OTHER ==
[2020-11-28 10:47] LABS: BASO % 0.5 % (0-2.0); EOS % 4.9 % (0-4.5); HEMATOCRIT 33.5 % (32.4-45.2); HEMOGLOBIN 10.7 GM/dL (10.7-15.3); LYMPH % 30.8 % (8-40); MCH 24.7 pg (25.7-33.7); MEAN CELL VOLUME 77.4 fl (80-96); MEAN PLT VOLUME 8.6 fl (7.5-11.1); MONO % 8.6 % (3.8-10.2); NEUT % 55.2 % (42.8-82.8); PLATELET COUNT 201 10^3/uL (134-434); RBC 4.33 M/mm3 (3.60-5.2); RDW 15.8 % (11.6-15.6); WHITE BLOOD COUNT 4.6 K/mm3 (4.0-10.0)
[2020-11-28] MEDS ORDERED: LIDOCAINE 1% P/F 10 MG/ML VIAL ID ONE (11:00)
[2020-11-28] MEDS ORDERED: GOSERELIN ACETATE 3.6 MG IMPLANT SYRINGE SQ ONE (11:00)
[2020-11-28 11:11] LABS: CALCIUM 9.3 mg/dL (8.5-10.1)
[2020-11-28 11:12] LABS: ALBUMIN 3.7 g/dl (3.4-5.0); BLOOD UREA NITROGEN 18.8 mg/dL (7-18); MAGNESIUM 1.8 mg/dL (1.8-2.4)
[2020-11-28 11:15] LABS: BILIRUBIN,DIRECT 0.2 mg/dL (0.0-0.2); CREATININE 0.9 mg/dL (0.55-1.3)
[2020-11-28 11:16] LABS: BILIRUBIN,TOTAL 0.8 mg/dL (0.2-1)
[2020-11-28 18:15] VITALS: BP 133/76; PULSE 70; TEMP 98.6
[2020-11-30 07:09] LABS: FOLLICLE STIMULATING HORMONE 4.1 mIU/mL (.); LUTEINIZING HORMONE 0.6 mIU/mL (.)
[2020-11-30 08:08] LABS: CARCINOEMBRYONIC ANTIGEN 2.6 ng/mL (0.0-4.7)
== END 2020-11-28 18:10 | disposition home or self-care (01) ==
LOC: JONCCHEMO 07:37
PROVIDERS: ATTEND Internal Medicine Hematology & Oncology
DX: Z51.11 Encounter for antineoplastic chemotherapy (principal); C50.512 Malignant neoplasm of lower-outer quadrant of left female breast; Z17.0 Estrogen receptor positive status [ER+]
CPT/HCPCS: 36415; 80048; 80076; 82378; 82670; 83001; 83002; 83735; 84703; 85025; 86300; 96401; J9202

== ENCOUNTER 2020-12-26 08:11 | Day surgery (SDC) | payer OTHER ==
[2020-12-26] MEDS ORDERED: GOSERELIN ACETATE 3.6 MG IMPLANT SYRINGE SQ ONE (10:00)
[2020-12-26] MEDS ORDERED: LIDOCAINE 1% P/F 10 MG/ML VIAL ID ONE (10:00)
[2020-12-26 12:12] LABS: BASO % 0.3 % (0-2.0); EOS % 4.1 % (0-4.5); HEMATOCRIT 33.3 % (32.4-45.2); HEMOGLOBIN 10.6 GM/dL (10.7-15.3); LYMPH % 36.7 % (8-40); MCH 24.9 pg (25.7-33.7); MEAN CELL VOLUME 77.8 fl (80-96); MEAN PLT VOLUME 8.8 fl (7.5-11.1); MONO % 5.2 % (3.8-10.2); NEUT % 53.7 % (42.8-82.8); PLATELET COUNT 204 10^3/uL (134-434); RBC 4.27 M/mm3 (3.60-5.2); RDW 15.2 % (11.6-15.6); WHITE BLOOD COUNT 4.7 K/mm3 (4.0-10.0)
[2020-12-26 12:40] LABS: CALCIUM 9.6 mg/dL (8.5-10.1)
[2020-12-26 12:41] LABS: ALBUMIN 3.4 g/dl (3.4-5.0); BLOOD UREA NITROGEN 16.2 mg/dL (7-18)
[2020-12-26 12:44] LABS: BILIRUBIN,DIRECT 0.1 mg/dL (0.0-0.2); MAGNESIUM 1.8 mg/dL (1.8-2.4)
[2020-12-26 12:46] LABS: BILIRUBIN,TOTAL 0.4 mg/dL (0.2-1); TOT PROT 7.6 g/dl (6.4-8.2)
[2020-12-26 17:13] VITALS: BP 150/77; PULSE 74; TEMP 98.4
[2020-12-26] MEDS ORDERED: PORTA CATH FLUSH 10 ML IVPUSH ONE (17:13)
[2020-12-27 08:07] LABS: CARCINOEMBRYONIC ANTIGEN 2.4 ng/mL (0.0-4.7)
[2020-12-28 11:09] LABS: FOLLICLE STIMULATING HORMONE 4.2 mIU/mL (.); LUTEINIZING HORMONE 0.4 mIU/mL (.)
== END 2020-12-26 17:14 | disposition home or self-care (01) ==
LOC: JONCCHEMO 08:11
PROVIDERS: ATTEND Internal Medicine Hematology & Oncology
DX: Z51.11 Encounter for antineoplastic chemotherapy (principal); C50.512 Malignant neoplasm of lower-outer quadrant of left female breast; Z17.0 Estrogen receptor positive status [ER+]
CPT/HCPCS: 36415; 80048; 80076; 82378; 82670; 83001; 83002; 83036; 83735; 84703; 85025; 96402; J9202

== ENCOUNTER 2021-01-23 08:07 | Day surgery (SDC) | payer OTHER ==
[2021-01-23] MEDS ORDERED: LIDOCAINE HCL 1%, 10 MG/ML (20ML VIAL) ID ONE (10:00)
[2021-01-23] MEDS ORDERED: GOSERELIN ACETATE 3.6 MG IMPLANT SYRINGE SQ ONE (10:00)
[2021-01-23 10:23] LABS: BASO % 0.4 % (0-2.0); EOS % 4.1 % (0-4.5); HEMATOCRIT 34.9 % (32.4-45.2); LYMPH % 38.4 % (8-40); MCH 24.5 pg (25.7-33.7); MCHC 31.6 g/dl (32.0-36.0); MEAN CELL VOLUME 77.5 fl (80-96); MEAN PLT VOLUME 8.7 fl (7.5-11.1); MONO % 8.3 % (3.8-10.2); NEUT % 48.8 % (42.8-82.8); PLATELET COUNT 211 10^3/uL (134-434); RDW 15.1 % (11.6-15.6); WHITE BLOOD COUNT 4.7 K/mm3 (4.0-10.0)
[2021-01-23 10:37] LABS: ALBUMIN 3.5 g/dl (3.4-5.0); CALCIUM 9.6 mg/dL (8.5-10.1)
[2021-01-23 10:38] LABS: BLOOD UREA NITROGEN 16.8 mg/dL (7-18); MAGNESIUM 2.1 mg/dL (1.8-2.4)
[2021-01-23 10:40] LABS: CREATININE 0.9 mg/dL (0.55-1.3)
[2021-01-23 10:42] LABS: BILIRUBIN,DIRECT 0.1 mg/dL (0.0-0.2); BILIRUBIN,TOTAL 0.4 mg/dL (0.2-1); TOT PROT 7.7 g/dl (6.4-8.2)
[2021-01-23 16:57] VITALS: BP 131/66; PULSE 65; TEMP 97.5
[2021-01-24 08:06] LABS: FOLLICLE STIMULATING HORMONE 4.7 mIU/mL (.); LUTEINIZING HORMONE < 0.3 mIU/mL (.)
== END 2021-01-23 14:15 | disposition home or self-care (01) ==
LOC: JONCCHEMO 08:07
PROVIDERS: ATTEND Internal Medicine Hematology & Oncology
DX: Z51.11 Encounter for antineoplastic chemotherapy (principal); C50.512 Malignant neoplasm of lower-outer quadrant of left female breast; Z17.0 Estrogen receptor positive status [ER+]
CPT/HCPCS: 36415; 80048; 80076; 82378; 82670; 83001; 83002; 83735; 84703; 85025; 86300; 96402; J9202

== ENCOUNTER 2021-02-27 07:31 | Day surgery (SDC) | payer OTHER ==
[2021-02-27] MEDS ORDERED: GOSERELIN ACETATE 3.6 MG IMPLANT SYRINGE SQ ONE (10:00)
[2021-02-27] MEDS ORDERED: LIDOCAINE HCL 1%, 10 MG/ML (20ML VIAL) ID ONE (10:00)
[2021-02-27 11:52] LABS: BASO % 0.3 % (0-2.0); EOS % 3.6 % (0-4.5); HEMATOCRIT 35.5 % (32.4-45.2); LYMPH % 39.7 % (8-40); MCH 24.5 pg (25.7-33.7); MCHC 30.9 g/dl (32.0-36.0); MEAN CELL VOLUME 79.1 fl (80-96); MEAN PLT VOLUME 9.1 fl (7.5-11.1); MONO % 7.6 % (3.8-10.2); NEUT % 48.8 % (42.8-82.8); PLATELET COUNT 229 10^3/uL (134-434); RBC 4.48 M/mm3 (3.60-5.2); RDW 15.2 % (11.6-15.6); WHITE BLOOD COUNT 5.1 K/mm3 (4.0-10.0)
[2021-02-27 12:13] LABS: BLOOD UREA NITROGEN 17.1 mg/dL (7-18); CALCIUM 9.7 mg/dL (8.5-10.1)
[2021-02-27 12:14] LABS: ALBUMIN 3.7 g/dl (3.4-5.0); MAGNESIUM 1.9 mg/dL (1.8-2.4)
[2021-02-27 12:16] LABS: BILIRUBIN,DIRECT 0.1 mg/dL (0.0-0.2)
[2021-02-27 12:17] LABS: CREATININE 0.9 mg/dL (0.55-1.3)
[2021-02-27 12:18] LABS: BILIRUBIN,TOTAL 0.3 mg/dL (0.2-1); TOT PROT 7.6 g/dl (6.4-8.2)
[2021-02-27 16:45] VITALS: BP 139/69; PULSE 76; TEMP 98.1
[2021-03-01 08:06] LABS: CARCINOEMBRYONIC ANTIGEN 2.2 ng/mL (0.0-4.7); FOLLICLE STIMULATING HORMONE 5.6 mIU/mL (.); LUTEINIZING HORMONE 0.4 mIU/mL (.)
== END 2021-02-27 16:35 | disposition home or self-care (01) ==
LOC: JONCCHEMO 07:31
PROVIDERS: ATTEND Internal Medicine Hematology & Oncology
DX: Z51.11 Encounter for antineoplastic chemotherapy (principal); C50.512 Malignant neoplasm of lower-outer quadrant of left female breast; Z17.0 Estrogen receptor positive status [ER+]
CPT/HCPCS: 36415; 80048; 80076; 82378; 82670; 83001; 83002; 83735; 84703; 85025; 86300; 96402; J9202

== ENCOUNTER 2021-04-03 08:07 | Day surgery (SDC) | payer OTHER ==
[~2021-04-03 08:07] MED LIST changes: -ACETAMINOPHEN 325 MG TABLET (FP) PO ONE; -ADO TRASTUZUMAB EMTANSINE IVPB ONE; -DEXAMETHASONE SODIUM PHOSPHATE 10 MG, DIPHENHYDRAMINE 25 MG in SODIUM CHLORIDE 100 ML IVPB ONE; +GOSERELIN ACETATE 3.6 MG IMPLANT SYRINGE SQ ONE; +LIDOCAINE HCL 1%, 10 MG/ML (20ML VIAL) ID ONE; -POTASSIUM CHLORIDE TABS 20 MEQ TABLET.ER (FP) PO ONE; -[UNRECOGNIZED DRUG - OTHER] IVPB ONE
[2021-04-03] MEDS ORDERED: LIDOCAINE HCL 1%, 10 MG/ML (20ML VIAL) ID ONE (10:00)
[2021-04-03] MEDS ORDERED: GOSERELIN ACETATE 3.6 MG IMPLANT SYRINGE SQ ONE (10:00)
[2021-04-03 15:46] LABS: BASO % 0.4 % (0-2.0); HEMOGLOBIN 11.1 GM/dL (10.7-15.3); LYMPH % 36.3 % (8-40); MCH 25.6 pg (25.7-33.7); MCHC 32.6 g/dl (32.0-36.0); MEAN CELL VOLUME 78.5 fl (80-96); MEAN PLT VOLUME 8.7 fl (7.5-11.1); MONO % 6.5 % (3.8-10.2); NEUT % 52.8 % (42.8-82.8); PLATELET COUNT 227 10^3/uL (134-434); RBC 4.33 M/mm3 (3.60-5.2); RDW 15.2 % (11.6-15.6)
[2021-04-03 16:04] LABS: CALCIUM 8.9 mg/dL (8.5-10.1)
[2021-04-03 16:05] LABS: ALBUMIN 3.7 g/dl (3.4-5.0); BLOOD UREA NITROGEN 24.3 mg/dL (7-18); MAGNESIUM 1.7 mg/dL (1.8-2.4)
[2021-04-03 16:07] LABS: BILIRUBIN,DIRECT 0.1 mg/dL (0.0-0.2)
[2021-04-03 16:08] LABS: CREATININE 0.9 mg/dL (0.55-1.3)
[2021-04-03 16:09] LABS: BILIRUBIN,TOTAL 0.5 mg/dL (0.2-1); TOT PROT 7.8 g/dl (6.4-8.2)
[2021-04-03] MEDS ORDERED: MAGNESIUM OXIDE 400 MG TABLET (FP) PO ONE (16:52)
[2021-04-03 17:30] VITALS: BP 129/63; PULSE 66
[2021-04-05 08:10] LABS: CARCINOEMBRYONIC ANTIGEN 1.9 ng/mL (0.0-4.7); FOLLICLE STIMULATING HORMONE 5.4 mIU/mL (.); LUTEINIZING HORMONE 0.4 mIU/mL (.)
== END 2021-04-03 17:20 | disposition home or self-care (01) ==
LOC: JONCCHEMO 08:07
PROVIDERS: ATTEND Internal Medicine Hematology & Oncology
DX: Z51.11 Encounter for antineoplastic chemotherapy (principal); C50.512 Malignant neoplasm of lower-outer quadrant of left female breast
CPT/HCPCS: 36415; 80048; 80076; 82378; 82670; 83001; 83002; 83540; 83550; 83735; 84703; 85025; 86300; 96401; J9202

== ENCOUNTER 2021-05-01 08:41 | Day surgery (SDC) | payer OTHER ==
[2021-05-01] MEDS ORDERED: GOSERELIN ACETATE 3.6 MG IMPLANT SYRINGE SQ ONE (10:00)
[2021-05-01] MEDS ORDERED: LIDOCAINE HCL 1%, 10 MG/ML (20ML VIAL) ID ONE (10:00)
[2021-05-01 10:47] LABS: BASO % 0.4 % (0-2.0); EOS % 3.9 % (0-4.5); HEMATOCRIT 36.3 % (32.4-45.2); HEMOGLOBIN 11.2 GM/dL (10.7-15.3); LYMPH % 34.8 % (8-40); MCH 24.6 pg (25.7-33.7); MCHC 30.8 g/dl (32.0-36.0); MEAN PLT VOLUME 8.8 fl (7.5-11.1); MONO % 7.3 % (3.8-10.2); NEUT % 53.6 % (42.8-82.8); PLATELET COUNT 249 10^3/uL (134-434); RBC 4.54 M/mm3 (3.60-5.2); RDW 15.2 % (11.6-15.6); WHITE BLOOD COUNT 4.9 K/mm3 (4.0-10.0)
[2021-05-01 11:05] LABS: CALCIUM 9.6 mg/dL (8.5-10.1)
[2021-05-01 11:06] LABS: ALBUMIN 3.9 g/dl (3.4-5.0); BLOOD UREA NITROGEN 21.2 mg/dL (7-18)
[2021-05-01 11:08] LABS: BILIRUBIN,DIRECT 0.1 mg/dL (0.0-0.2)
[2021-05-01 11:09] LABS: CREATININE 0.9 mg/dL (0.55-1.3)
[2021-05-01 11:10] LABS: BILIRUBIN,TOTAL 0.9 mg/dL (0.2-1)
[2021-05-01 16:41] VITALS: BP 130/54; PULSE 67; TEMP 98.4
[2021-05-02 08:06] LABS: CARCINOEMBRYONIC ANTIGEN 2.4 ng/mL (0.0-4.7); FOLLICLE STIMULATING HORMONE 4.7 mIU/mL (.); LUTEINIZING HORMONE 0.6 mIU/mL (.)
== END 2021-05-01 16:51 | disposition home or self-care (01) ==
LOC: JONCCHEMO 08:41
PROVIDERS: ATTEND Internal Medicine Hematology & Oncology
DX: Z51.11 Encounter for antineoplastic chemotherapy (principal); C50.512 Malignant neoplasm of lower-outer quadrant of left female breast
CPT/HCPCS: 36415; 80048; 80076; 82378; 82670; 83001; 83002; 83735; 84703; 85025; 86300; 96402; J9202

== ENCOUNTER 2021-05-26 07:03 | Day surgery (SDC) | payer OTHER ==
[2021-05-26] MEDS ORDERED: GOSERELIN ACETATE 3.6 MG IMPLANT SYRINGE SQ ONE (10:00)
[2021-05-26] MEDS ORDERED: LIDOCAINE HCL 1%, 10 MG/ML (20ML VIAL) ID ONE (10:00)
[2021-05-26 11:07] LABS: BASO % 0.4 % (0-2.0); HEMATOCRIT 34.6 % (32.4-45.2); LYMPH % 37.6 % (8-40); MCHC 31.7 g/dl (32.0-36.0); MEAN CELL VOLUME 78.8 fl (80-96); MEAN PLT VOLUME 8.4 fl (7.5-11.1); MONO % 7.6 % (3.8-10.2); NEUT % 50.4 % (42.8-82.8); PLATELET COUNT 219 10^3/uL (134-434); RBC 4.39 M/mm3 (3.60-5.2); WHITE BLOOD COUNT 4.7 K/mm3 (4.0-10.0)
[2021-05-26 11:17] LABS: INR 1.05 (0.83-1.09); PROTHROMBIN TIME (PATIENT) 12.1 SEC (9.7-13.0)
[2021-05-26 11:19] LABS: ACTIVATED PTT 37.9 SECONDS (25.2-36.5)
[2021-05-26 11:29] LABS: BLOOD UREA NITROGEN 20.6 mg/dL (7-18); CALCIUM 9.1 mg/dL (8.5-10.1)
[2021-05-26 11:30] LABS: ALBUMIN 3.6 g/dl (3.4-5.0)
[2021-05-26 11:32] LABS: BILIRUBIN,DIRECT 0.2 mg/dL (0.0-0.2)
[2021-05-26 11:34] LABS: BILIRUBIN,TOTAL 0.5 mg/dL (0.2-1); TOT PROT 7.6 g/dl (6.4-8.2)
[2021-05-26 16:32] VITALS: BP 128/70; PULSE 63; TEMP 98.1
[2021-05-27 08:08] LABS: FOLLICLE STIMULATING HORMONE 4.4 mIU/mL (.); LUTEINIZING HORMONE 0.3 mIU/mL (.)
== END 2021-05-26 16:34 | disposition home or self-care (01) ==
LOC: JONCCHEMO 07:03
PROVIDERS: ATTEND Internal Medicine Hematology & Oncology
DX: Z51.11 Encounter for antineoplastic chemotherapy (principal); C50.512 Malignant neoplasm of lower-outer quadrant of left female breast
CPT/HCPCS: 36415; 80048; 80076; 82670; 83001; 83002; 83735; 84703; 85025; 85610; 85730; 96402; J9202

== ENCOUNTER 2021-06-25 08:42 | Day surgery (SDC) | payer OTHER ==
[2021-06-25] MEDS ORDERED: GOSERELIN ACETATE 3.6 MG IMPLANT SYRINGE SQ ONE (15:15)
[2021-06-25] MEDS ORDERED: LIDOCAINE HCL 1%, 10 MG/ML (20ML VIAL) ID ONE (15:15)
[2021-06-25 15:17] LABS: BASO % 0.4 % (0-2.0); EOS % 6.7 % (0-4.5); HEMATOCRIT 34.1 % (32.4-45.2); HEMOGLOBIN 10.6 GM/dL (10.7-15.3); LYMPH % 34.8 % (8-40); MCH 25.1 pg (25.7-33.7); MCHC 31.1 g/dl (32.0-36.0); MEAN CELL VOLUME 80.5 fl (80-96); MEAN PLT VOLUME 9.3 fl (7.5-11.1); MONO % 8.6 % (3.8-10.2); NEUT % 49.5 % (42.8-82.8); PLATELET COUNT 237 10^3/uL (134-434); RBC 4.24 M/mm3 (3.60-5.2)
[2021-06-25 15:36] LABS: ALBUMIN 3.9 g/dl (3.4-5.0)
[2021-06-25 15:38] LABS: BILIRUBIN,DIRECT 0.1 mg/dL (0.0-0.2)
[2021-06-25 15:40] LABS: BILIRUBIN,TOTAL 0.2 mg/dL (0.2-1); TOT PROT 7.7 g/dl (6.4-8.2)
[2021-06-25 18:23] VITALS: BP 124/72; PULSE 78; TEMP 97.7
[2021-06-27 08:07] LABS: FOLLICLE STIMULATING HORMONE 5.4 mIU/mL (.); LUTEINIZING HORMONE 0.3 mIU/mL (.)
== END 2021-06-25 17:10 | disposition home or self-care (01) ==
LOC: JONCCHEMO 08:42
PROVIDERS: ATTEND Internal Medicine Hematology & Oncology
DX: Z51.11 Encounter for antineoplastic chemotherapy (principal); C50.512 Malignant neoplasm of lower-outer quadrant of left female breast
CPT/HCPCS: 36415; 80076; 82378; 82670; 82728; 83001; 83002; 83540; 83550; 83735; 84703; 85025; 86300; 96402; J9202

== ENCOUNTER 2021-07-24 08:16 | Day surgery (SDC) | payer OTHER ==
[2021-07-24] MEDS ORDERED: LIDOCAINE HCL 1%, 10 MG/ML (20ML VIAL) ID ONE (10:00)
[2021-07-24] MEDS ORDERED: GOSERELIN ACETATE 3.6 MG IMPLANT SYRINGE SQ ONE (10:00)
[2021-07-24 11:43] LABS: BASO % 0.4 % (0-2.0); HEMATOCRIT 33.9 % (32.4-45.2); LYMPH % 33.5 % (8-40); MCH 25.2 pg (25.7-33.7); MCHC 32.3 g/dl (32.0-36.0); MEAN CELL VOLUME 78.2 fl (80-96); MEAN PLT VOLUME 8.7 fl (7.5-11.1); MONO % 6.9 % (3.8-10.2); NEUT % 54.2 % (42.8-82.8); PLATELET COUNT 209 10^3/uL (134-434); RBC 4.34 M/mm3 (3.60-5.2)
[2021-07-24 12:05] LABS: ALBUMIN 3.7 g/dl (3.4-5.0); BLOOD UREA NITROGEN 19.1 mg/dL (7-18); CALCIUM 9.3 mg/dL (8.5-10.1)
[2021-07-24 12:08] LABS: BILIRUBIN,DIRECT 0.1 mg/dL (0.0-0.2); BILIRUBIN,TOTAL 0.4 mg/dL (0.2-1); CREATININE 0.9 mg/dL (0.55-1.3)
[2021-07-24 12:10] LABS: TOT PROT 7.5 g/dl (6.4-8.2)
[2021-07-24 16:43] VITALS: BP 122/58; PULSE 74; TEMP 98.1
[2021-07-25 08:07] LABS: CARCINOEMBRYONIC ANTIGEN 2.3 ng/mL (0.0-4.7); FOLLICLE STIMULATING HORMONE 4.5 mIU/mL (.); LUTEINIZING HORMONE 0.3 mIU/mL (.)
== END 2021-07-24 16:48 | disposition home or self-care (01) ==
LOC: JONCCHEMO 08:16
PROVIDERS: ATTEND Internal Medicine Hematology & Oncology
DX: Z51.11 Encounter for antineoplastic chemotherapy (principal); C50.512 Malignant neoplasm of lower-outer quadrant of left female breast; Z17.0 Estrogen receptor positive status [ER+]
CPT/HCPCS: 36415; 80048; 80076; 82378; 82670; 82728; 83001; 83002; 83540; 83550; 83735; 84703; 85025; 96402; J9202

== ENCOUNTER 2021-08-21 06:25 | Day surgery (SDC) | payer OTHER ==
[2021-08-21] MEDS ORDERED: LIDOCAINE HCL 1%, 10 MG/ML (20ML VIAL) ID ONE (10:00)
[2021-08-21] MEDS ORDERED: GOSERELIN ACETATE 3.6 MG IMPLANT SYRINGE SQ ONE (10:00)
[2021-08-21 13:32] LABS: BASO % 0.3 % (0-2.0); CALCIUM 9.2 mg/dL (8.5-10.1); EOS % 4.7 % (0-4.5); HEMATOCRIT 35.8 % (32.4-45.2); HEMOGLOBIN 11.4 GM/dL (10.7-15.3); LYMPH % 37.1 % (8-40); MCH 24.9 pg (25.7-33.7); MCHC 31.9 g/dl (32.0-36.0); MEAN PLT VOLUME 8.7 fl (7.5-11.1); MONO % 7.1 % (3.8-10.2); NEUT % 50.8 % (42.8-82.8); PLATELET COUNT 238 10^3/uL (134-434); RBC 4.59 M/mm3 (3.60-5.2); RDW 15.3 % (11.6-15.6); WHITE BLOOD COUNT 5.7 K/mm3 (4.0-10.0)
[2021-08-21 13:33] LABS: BLOOD UREA NITROGEN 16.8 mg/dL (7-18)
[2021-08-21 13:34] LABS: ALBUMIN 3.6 g/dl (3.4-5.0)
[2021-08-21 13:35] LABS: BILIRUBIN,DIRECT 0.1 mg/dL (0.0-0.2)
[2021-08-21 13:37] LABS: BILIRUBIN,TOTAL 0.5 mg/dL (0.2-1); TOT PROT 7.8 g/dl (6.4-8.2)
[2021-08-21 18:36] VITALS: BP 134/43; PULSE 72; TEMP 98.6
[2021-08-23 10:09] LABS: FOLLICLE STIMULATING HORMONE 4.4 mIU/mL (.); LUTEINIZING HORMONE 0.5 mIU/mL (.)
== END 2021-08-21 17:00 | disposition home or self-care (01) ==
LOC: JONCCHEMO 06:25
PROVIDERS: ATTEND Internal Medicine Hematology & Oncology
DX: Z51.11 Encounter for antineoplastic chemotherapy (principal); C50.512 Malignant neoplasm of lower-outer quadrant of left female breast; Z17.0 Estrogen receptor positive status [ER+]
CPT/HCPCS: 36415; 80048; 80076; 82378; 82670; 82728; 83001; 83002; 83540; 83550; 83735; 84703; 85025; 86300; 96402; J9202

== ENCOUNTER 2021-09-18 06:36 | Day surgery (SDC) | payer OTHER ==
[2021-09-18] MEDS ORDERED: LIDOCAINE HCL 1%, 10 MG/ML (20ML VIAL) ID ONE (10:00)
[2021-09-18] MEDS ORDERED: GOSERELIN ACETATE 3.6 MG IMPLANT SYRINGE SQ ONE (10:00)
[2021-09-18 11:55] LABS: BASO % 0.4 % (0-2.0); EOS % 4.5 % (0-4.5); HEMATOCRIT 34.3 % (32.4-45.2); HEMOGLOBIN 10.9 GM/dL (10.7-15.3); LYMPH % 34.8 % (8-40); MCH 24.7 pg (25.7-33.7); MCHC 31.8 g/dl (32.0-36.0); MEAN CELL VOLUME 77.8 fl (80-96); MONO % 6.2 % (3.8-10.2); NEUT % 54.1 % (42.8-82.8); PLATELET COUNT 219 10^3/uL (134-434); RDW 15.2 % (11.6-15.6); WHITE BLOOD COUNT 5.6 K/mm3 (4.0-10.0)
[2021-09-18 12:24] LABS: ALBUMIN 3.6 g/dl (3.4-5.0); BLOOD UREA NITROGEN 12.4 mg/dL (7-18); CALCIUM 8.9 mg/dL (8.5-10.1)
[2021-09-18 12:27] LABS: BILIRUBIN,DIRECT 0.2 mg/dL (0.0-0.2); CREATININE 0.9 mg/dL (0.55-1.3)
[2021-09-18 12:29] LABS: BILIRUBIN,TOTAL 0.4 mg/dL (0.2-1); TOT PROT 7.4 g/dl (6.4-8.2)
[2021-09-18 16:47] VITALS: BP 120/69; PULSE 61; RESP 18; TEMP 97.9
[2021-09-19 08:09] LABS: FOLLICLE STIMULATING HORMONE 4.5 mIU/mL (.); LUTEINIZING HORMONE 0.3 mIU/mL (.)
== END 2021-09-18 17:11 | disposition home or self-care (01) ==
LOC: JONCCHEMO 06:36
PROVIDERS: ATTEND Internal Medicine Hematology & Oncology
DX: Z51.11 Encounter for antineoplastic chemotherapy (principal); C50.512 Malignant neoplasm of lower-outer quadrant of left female breast; Z17.0 Estrogen receptor positive status [ER+]
CPT/HCPCS: 36415; 80048; 80076; 82378; 82670; 82728; 83001; 83002; 83540; 83550; 83735; 84703; 85025; 86300; 96402; J9202

== ENCOUNTER 2021-10-16 06:51 | Day surgery (SDC) | payer OTHER ==
[2021-10-16] MEDS ORDERED: GOSERELIN ACETATE 3.6 MG IMPLANT SYRINGE SQ ONE (10:00)
[2021-10-16] MEDS ORDERED: LIDOCAINE HCL 1%, 10 MG/ML (20ML VIAL) ID ONE (10:00)
[2021-10-16 10:32] LABS: BASO % 0.3 % (0-2.0); EOS % 4.2 % (0-4.5); HEMATOCRIT 35.3 % (32.4-45.2); HEMOGLOBIN 11.5 GM/dL (10.7-15.3); LYMPH % 38.3 % (8-40); MCH 25.6 pg (25.7-33.7); MCHC 32.4 g/dl (32.0-36.0); MEAN PLT VOLUME 8.8 fl (7.5-11.1); MONO % 7.4 % (3.8-10.2); NEUT % 49.8 % (42.8-82.8); PLATELET COUNT 210 10^3/uL (134-434); RBC 4.47 M/mm3 (3.60-5.2); RDW 15.1 % (11.6-15.6); WHITE BLOOD COUNT 4.7 K/mm3 (4.0-10.0)
[2021-10-16 10:53] LABS: CALCIUM 9.1 mg/dL (8.5-10.1)
[2021-10-16 10:54] LABS: ALBUMIN 3.5 g/dl (3.4-5.0); BLOOD UREA NITROGEN 18.2 mg/dL (7-18); MAGNESIUM 1.8 mg/dL (1.8-2.4)
[2021-10-16 10:56] LABS: CREATININE 0.9 mg/dL (0.55-1.3)
[2021-10-16 10:57] LABS: BILIRUBIN,DIRECT 0.1 mg/dL (0.0-0.2); BILIRUBIN,TOTAL 0.4 mg/dL (0.2-1)
[2021-10-16 10:58] LABS: TOT PROT 7.6 g/dl (6.4-8.2)
[2021-10-16 12:44] VITALS: BP 142/65; PULSE 59; RESP 18; TEMP 98.1
[2021-10-17 08:06] LABS: FOLLICLE STIMULATING HORMONE 4.9 mIU/mL (.); LUTEINIZING HORMONE 0.4 mIU/mL (.)
== END 2021-10-16 12:55 | disposition home or self-care (01) ==
LOC: JONCCHEMO 06:51
PROVIDERS: ATTEND Internal Medicine Hematology & Oncology
DX: Z51.11 Encounter for antineoplastic chemotherapy (principal); C50.512 Malignant neoplasm of lower-outer quadrant of left female breast; Z17.0 Estrogen receptor positive status [ER+]
CPT/HCPCS: 36415; 80048; 80076; 82378; 82670; 82728; 83001; 83002; 83540; 83550; 83735; 84703; 85025; 86300; 96402; J9202

== ENCOUNTER 2021-11-13 12:26 | Emergency (ER) | payer OTHER ==
[2021-11-13 12:48] VITALS: BP 129/50; PULSE 78; RESP 18; TEMP 100.1; BMI 28.3
== END 2021-11-13 14:10 | disposition home or self-care (01) ==
LOC: JER 12:26
DX: U07.1 COVID-19 (principal)
CPT/HCPCS: 0241U-QW; 99283-25

== ENCOUNTER 2021-12-11 11:16 | Day surgery (SDC) | payer OTHER ==
[2021-12-11 12:20] LABS: BASO % 0.4 % (0-2.0); EOS % 4.6 % (0-4.5); HEMATOCRIT 34.3 % (32.4-45.2); LYMPH % 40.5 % (8-40); MCH 25.7 pg (25.7-33.7); MEAN CELL VOLUME 80.3 fl (80-96); MEAN PLT VOLUME 8.3 fl (7.5-11.1); NEUT % 45.5 % (42.8-82.8); PLATELET COUNT 220 10^3/uL (134-434); RBC 4.28 M/mm3 (3.60-5.2); RDW 14.5 % (11.6-15.6); WHITE BLOOD COUNT 4.8 K/mm3 (4.0-10.0)
[2021-12-11 13:08] LABS: CALCIUM 9.4 mg/dL (8.5-10.1)
[2021-12-11 13:09] LABS: ALBUMIN 3.6 g/dl (3.4-5.0); BLOOD UREA NITROGEN 17.2 mg/dL (7-18); MAGNESIUM 1.8 mg/dL (1.8-2.4)
[2021-12-11 13:10] LABS: BILIRUBIN,DIRECT 0.1 mg/dL (0.0-0.2); IRON SERUM 108 ug/dL (50-175); TOTAL IRON BINDING CAPACITY 325 ug/dL (250-450)
[2021-12-11 13:12] LABS: CREATININE 0.9 mg/dL (0.55-1.3)
[2021-12-11 13:13] LABS: BILIRUBIN,TOTAL 0.4 mg/dL (0.2-1); TOT PROT 7.4 g/dl (6.4-8.2)
[2021-12-11 18:07] VITALS: BP 130/68; PULSE 71; RESP 18; TEMP 98.3
[2021-12-13 08:12] LABS: FOLLICLE STIMULATING HORMONE 4.6 mIU/mL (.); LUTEINIZING HORMONE 0.8 mIU/mL (.)
== END 2021-12-11 17:30 | disposition home or self-care (01) ==
LOC: JONCCHEMO 11:16
PROVIDERS: ATTEND Internal Medicine Hematology & Oncology
DX: Z51.11 Encounter for antineoplastic chemotherapy (principal); C50.512 Malignant neoplasm of lower-outer quadrant of left female breast; Z17.0 Estrogen receptor positive status [ER+]
CPT/HCPCS: 36415; 80048; 80076; 82378; 82670; 82728; 83001; 83002; 83540; 83550; 83735; 84703; 85025; 86300; 96402; J9202

== ENCOUNTER 2022-01-08 13:39 | Day surgery (SDC) | payer OTHER ==
[2022-01-08 14:29] LABS: BASO % 0.3 % (0-2.0); HEMATOCRIT 35.6 % (32.4-45.2); HEMOGLOBIN 11.4 GM/dL (10.7-15.3); LYMPH % 36.9 % (8-40); MCH 25.6 pg (25.7-33.7); MCHC 32.1 g/dl (32.0-36.0); MEAN CELL VOLUME 79.9 fl (80-96); MEAN PLT VOLUME 8.7 fl (7.5-11.1); NEUT % 50.8 % (42.8-82.8); PLATELET COUNT 246 10^3/uL (134-434); RBC 4.46 M/mm3 (3.60-5.2); RDW 14.4 % (11.6-15.6); WHITE BLOOD COUNT 5.9 K/mm3 (4.0-10.0)
[2022-01-08 14:58] LABS: ALBUMIN 3.6 g/dl (3.4-5.0); BLOOD UREA NITROGEN 18.1 mg/dL (7-18); CALCIUM 9.1 mg/dL (8.5-10.1); MAGNESIUM 1.6 mg/dL (1.8-2.4)
[2022-01-08 15:01] LABS: BILIRUBIN,DIRECT 0.1 mg/dL (0.0-0.2)
[2022-01-08 15:03] LABS: BILIRUBIN,TOTAL 0.2 mg/dL (0.2-1); TOT PROT 7.4 g/dl (6.4-8.2)
[2022-01-08] MEDS ORDERED: MAGNESIUM OXIDE 400 MG TABLET (FP) PO ONE (15:10)
[2022-01-08 19:48] VITALS: BP 140/72; PULSE 72; RESP 20; TEMP 98.1
[2022-01-10 08:06] LABS: CARCINOEMBRYONIC ANTIGEN 2.1 ng/mL (0.0-4.7); LUTEINIZING HORMONE 0.3 mIU/mL (.)
== END 2022-01-08 17:26 | disposition home or self-care (01) ==
LOC: JONCCHEMO 13:39
PROVIDERS: ATTEND Internal Medicine Hematology & Oncology
DX: Z51.11 Encounter for antineoplastic chemotherapy (principal); C50.512 Malignant neoplasm of lower-outer quadrant of left female breast; Z17.0 Estrogen receptor positive status [ER+]
CPT/HCPCS: 36415; 80048; 80076; 82378; 82670; 83001; 83002; 83735; 84703; 85025; 86300; 96402; J9202

== ENCOUNTER 2022-02-05 07:23 | Day surgery (SDC) | payer OTHER ==
[2022-02-05] MEDS ORDERED: GOSERELIN ACETATE 3.6 MG IMPLANT SYRINGE SQ ONE (10:00)
[2022-02-05] MEDS ORDERED: LIDOCAINE HCL 1%, 10 MG/ML (20ML VIAL) ID ONE (10:00)
[2022-02-05 16:15] LABS: BASO % 0.4 % (0-2.0); EOS % 3.7 % (0-4.5); HEMATOCRIT 37.3 % (32.4-45.2); HEMOGLOBIN 11.5 GM/dL (10.7-15.3); LYMPH % 37.3 % (8-40); MCH 24.8 pg (25.7-33.7); MCHC 30.8 g/dl (32.0-36.0); MEAN CELL VOLUME 80.4 fl (80-96); MEAN PLT VOLUME 9.4 fl (7.5-11.1); MONO % 9.2 % (3.8-10.2); NEUT % 49.4 % (42.8-82.8); PLATELET COUNT 261 10^3/uL (134-434); RBC 4.64 M/mm3 (3.60-5.2); RDW 14.7 % (11.6-15.6); WHITE BLOOD COUNT 5.8 K/mm3 (4.0-10.0)
[2022-02-05 16:52] LABS: ALBUMIN 3.7 g/dl (3.4-5.0); BLOOD UREA NITROGEN 17.7 mg/dL (7-18); CALCIUM 9.3 mg/dL (8.5-10.1); MAGNESIUM 1.9 mg/dL (1.8-2.4)
[2022-02-05 16:55] VITALS: BP 136/64; PULSE 69; RESP 16; TEMP 98.5
[2022-02-05 16:55] LABS: BILIRUBIN,DIRECT 0.1 mg/dL (0.0-0.2); CREATININE 1.4 mg/dL (0.55-1.3)
[2022-02-05 16:57] LABS: BILIRUBIN,TOTAL 0.4 mg/dL (0.2-1); TOT PROT 7.6 g/dl (6.4-8.2)
[2022-02-07 08:07] LABS: CARCINOEMBRYONIC ANTIGEN 2.2 ng/mL (0.0-4.7)
== END 2022-02-05 16:55 | disposition home or self-care (01) ==
LOC: JONCCHEMO 07:23
PROVIDERS: ATTEND Internal Medicine Hematology & Oncology
DX: Z51.11 Encounter for antineoplastic chemotherapy (principal); C50.512 Malignant neoplasm of lower-outer quadrant of left female breast; Z17.0 Estrogen receptor positive status [ER+]
CPT/HCPCS: 36415; 80048; 80076; 82378; 82670; 83735; 84703; 85025; 86300; 96402; J9202

== ENCOUNTER 2022-03-05 10:02 | Day surgery (SDC) | payer OTHER ==
[2022-03-05 10:36] LABS: BASO % 0.6 % (0-2.0); EOS % 4.4 % (0-4.5); HEMATOCRIT 35.3 % (32.4-45.2); HEMOGLOBIN 11.1 GM/dL (10.7-15.3); LYMPH % 40.6 % (8-40); MCH 25.1 pg (25.7-33.7); MCHC 31.5 g/dl (32.0-36.0); MEAN CELL VOLUME 79.5 fl (80-96); MEAN PLT VOLUME 8.4 fl (7.5-11.1); NEUT % 46.4 % (42.8-82.8); PLATELET COUNT 227 10^3/uL (134-434); RBC 4.44 M/mm3 (3.60-5.2); RDW 14.2 % (11.6-15.6); WHITE BLOOD COUNT 4.9 K/mm3 (4.0-10.0)
[2022-03-05 11:00] LABS: ALBUMIN 3.7 g/dl (3.4-5.0); BLOOD UREA NITROGEN 18.8 mg/dL (7-18); CALCIUM 9.2 mg/dL (8.5-10.1); MAGNESIUM 1.9 mg/dL (1.8-2.4)
[2022-03-05 11:03] LABS: BILIRUBIN,DIRECT 0.1 mg/dL (0.0-0.2); CREATININE 0.9 mg/dL (0.55-1.3)
[2022-03-05 11:05] LABS: BILIRUBIN,TOTAL 0.4 mg/dL (0.2-1); TOT PROT 7.4 g/dl (6.4-8.2)
[2022-03-05 15:18] VITALS: BP 129/57; PULSE 63; RESP 18; TEMP 98.3
[2022-03-06 08:06] LABS: CARCINOEMBRYONIC ANTIGEN 2.1 ng/mL (0.0-4.7)
== END 2022-03-05 14:45 | disposition home or self-care (01) ==
LOC: JONCCHEMO 10:02
PROVIDERS: ATTEND Internal Medicine Hematology & Oncology
DX: Z51.11 Encounter for antineoplastic chemotherapy (principal); C50.512 Malignant neoplasm of lower-outer quadrant of left female breast; Z17.0 Estrogen receptor positive status [ER+]
CPT/HCPCS: 36415; 80048; 80076; 82378; 82670; 83735; 84703; 85025; 86300; 96402; J9202

== ENCOUNTER 2022-04-02 14:00 | Day surgery (SDC) | payer OTHER ==
[~2022-04-02 14:00] MED LIST changes: -GOSERELIN ACETATE 3.6 MG IMPLANT SYRINGE SQ ONE
[2022-04-02] MEDS: GOSERELIN ACETATE 3.6 MG IMPLANT SYRINGE SQ ONE ×2 (14:21→16:04)
[2022-04-02 16:19] VITALS: BP 102/64; PULSE 83; RESP 18; TEMP 98.2
== END 2022-04-02 16:10 | disposition home or self-care (01) ==
LOC: JONCCHEMO 14:00
PROVIDERS: ATTEND Internal Medicine Hematology & Oncology
DX: Z51.11 Encounter for antineoplastic chemotherapy (principal); C50.512 Malignant neoplasm of lower-outer quadrant of left female breast
CPT/HCPCS: 96402; J9202

== ENCOUNTER 2022-04-30 08:41 | Day surgery (SDC) | payer OTHER ==
[2022-04-30] MEDS ORDERED: LIDOCAINE HCL 1%, 10 MG/ML (20ML VIAL) ID ONE (10:00)
[2022-04-30] MEDS ORDERED: GOSERELIN ACETATE 3.6 MG IMPLANT SYRINGE SQ ONE (10:00)
[2022-04-30 10:08] LABS: BASO % 0.5 % (0-2.0); EOS % 3.9 % (0-4.5); HEMATOCRIT 35.4 % (32.4-45.2); HEMOGLOBIN 11.3 GM/dL (10.7-15.3); LYMPH % 35.3 % (8-40); MCH 25.1 pg (25.7-33.7); MCHC 31.9 g/dl (32.0-36.0); MEAN CELL VOLUME 78.7 fl (80-96); MEAN PLT VOLUME 9.1 fl (7.5-11.1); MONO % 6.9 % (3.8-10.2); NEUT % 53.4 % (42.8-82.8); PLATELET COUNT 246 10^3/uL (134-434); RDW 14.7 % (11.6-15.6); WHITE BLOOD COUNT 5.7 K/mm3 (4.0-10.0)
[2022-04-30 10:33] LABS: ALBUMIN 3.7 g/dl (3.4-5.0); BLOOD UREA NITROGEN 18.1 mg/dL (7-18); MAGNESIUM 1.8 mg/dL (1.8-2.4)
[2022-04-30 10:35] LABS: CREATININE 0.8 mg/dL (0.55-1.3)
[2022-04-30 10:36] LABS: BILIRUBIN,DIRECT 0.1 mg/dL (0.0-0.2)
[2022-04-30 10:38] LABS: BILIRUBIN,TOTAL 0.4 mg/dL (0.2-1); TOT PROT 7.6 g/dl (6.4-8.2)
[2022-04-30 16:46] VITALS: BP 138/72; PULSE 66; RESP 18; TEMP 98
[2022-05-01 08:07] LABS: FOLLICLE STIMULATING HORMONE 3.7 mIU/mL (.); LUTEINIZING HORMONE < 0.3 mIU/mL (.)
== END 2022-04-30 16:45 | disposition home or self-care (01) ==
LOC: JONCCHEMO 08:41
PROVIDERS: ATTEND Internal Medicine Hematology & Oncology
DX: Z51.11 Encounter for antineoplastic chemotherapy (principal); C50.512 Malignant neoplasm of lower-outer quadrant of left female breast
CPT/HCPCS: 36415; 80048; 80076; 82378; 82670; 82728; 83001; 83002; 83540; 83550; 83735; 84703; 85025; 86300; 96402; J9202

== ENCOUNTER 2022-05-28 10:06 | Day surgery (SDC) | payer OTHER ==
[~2022-05-28 10:06] MED LIST changes: +GOSERELIN ACETATE 3.6 MG IMPLANT SYRINGE SQ ONE
[2022-05-28 11:36] LABS: BASO % 0.6 % (0-2.0); EOS % 4.2 % (0-4.5); HEMATOCRIT 33.7 % (32.4-45.2); LYMPH % 42.3 % (8-40); MCH 25.4 pg (25.7-33.7); MCHC 32.8 g/dl (32.0-36.0); MEAN CELL VOLUME 77.3 fl (80-96); MONO % 7.8 % (3.8-10.2); NEUT % 45.1 % (42.8-82.8); PLATELET COUNT 248 10^3/uL (134-434); RBC 4.35 M/mm3 (3.60-5.2); RDW 14.6 % (11.6-15.6); WHITE BLOOD COUNT 5.5 K/mm3 (4.0-10.0)
[2022-05-28 11:56] LABS: BLOOD UREA NITROGEN 19.9 mg/dL (7-18)
[2022-05-28 11:57] LABS: ALBUMIN 3.7 g/dl (3.4-5.0); CALCIUM 9.8 mg/dL (8.5-10.1)
[2022-05-28 11:58] LABS: MAGNESIUM 1.9 mg/dL (1.8-2.4)
[2022-05-28 12:01] LABS: BILIRUBIN,DIRECT 0.1 mg/dL (0.0-0.2); BILIRUBIN,TOTAL 0.4 mg/dL (0.2-1); CREATININE 0.9 mg/dL (0.55-1.3)
[2022-05-28 12:02] LABS: TOT PROT 7.6 g/dl (6.4-8.2)
[2022-05-28 17:49] VITALS: BP 140/84; PULSE 73; RESP 18; TEMP 98.4
[2022-05-30 08:06] LABS: FOLLICLE STIMULATING HORMONE 3.7 mIU/mL (.); LUTEINIZING HORMONE 0.3 mIU/mL (.)
== END 2022-05-28 17:00 | disposition home or self-care (01) ==
LOC: JONCCHEMO 10:06
PROVIDERS: ATTEND Internal Medicine Hematology & Oncology
DX: Z51.11 Encounter for antineoplastic chemotherapy (principal); C50.512 Malignant neoplasm of lower-outer quadrant of left female breast
CPT/HCPCS: 36415; 80048; 80076; 82378; 82670; 82728; 83001; 83002; 83540; 83550; 83735; 84703; 85025; 86300; 96402; J9202

== ENCOUNTER 2022-06-25 09:25 | Day surgery (SDC) | payer OTHER ==
[2022-06-25] MEDS ORDERED: LIDOCAINE HCL 1%, 10 MG/ML (20ML VIAL) ID ONE (10:00)
[2022-06-25] MEDS ORDERED: GOSERELIN ACETATE 3.6 MG IMPLANT SYRINGE SQ ONE (10:00)
[2022-06-25 10:05] LABS: BASO % 0.4 % (0-2.0); EOS % 4.5 % (0-4.5); HEMATOCRIT 34.3 % (32.4-45.2); HEMOGLOBIN 11.4 GM/dL (10.7-15.3); LYMPH % 35.8 % (8-40); MCH 25.7 pg (25.7-33.7); MCHC 33.3 g/dl (32.0-36.0); MEAN CELL VOLUME 77.3 fl (80-96); MEAN PLT VOLUME 8.7 fl (7.5-11.1); MONO % 8.6 % (3.8-10.2); NEUT % 50.7 % (42.8-82.8); PLATELET COUNT 245 10^3/uL (134-434); RBC 4.44 M/mm3 (3.60-5.2); RDW 14.9 % (11.6-15.6)
[2022-06-25 10:28] LABS: ALBUMIN 3.6 g/dl (3.4-5.0); CALCIUM 9.3 mg/dL (8.5-10.1); MAGNESIUM 1.7 mg/dL (1.8-2.4)
[2022-06-25 10:31] LABS: BILIRUBIN,DIRECT 0.1 mg/dL (0.0-0.2); CREATININE 0.9 mg/dL (0.55-1.3)
[2022-06-25 10:33] LABS: BILIRUBIN,TOTAL 0.5 mg/dL (0.2-1); TOT PROT 7.6 g/dl (6.4-8.2)
[2022-06-25] MEDS ORDERED: MAGNESIUM OXIDE 400 MG TABLET (FP) PO ONE ×2 (10:58→12:30)
[2022-06-25 18:26] VITALS: BP 145/79; PULSE 74; RESP 20; TEMP 98
[2022-06-26 08:08] LABS: LUTEINIZING HORMONE 0.8 mIU/mL (.)
== END 2022-06-25 16:30 | disposition home or self-care (01) ==
LOC: JONCCHEMO 09:25 → J7W 09:36 → JONCCHEMO 16:30
PROVIDERS: ATTEND Internal Medicine Hematology & Oncology
DX: Z51.11 Encounter for antineoplastic chemotherapy (principal); C50.512 Malignant neoplasm of lower-outer quadrant of left female breast
CPT/HCPCS: 36415; 80048; 80076; 82378; 82670; 82728; 83001; 83002; 83540; 83550; 83735; 85025; 86300; 96402; J9202

== ENCOUNTER 2022-07-23 11:51 | Day surgery (SDC) | payer OTHER ==
[2022-07-23 12:24] LABS: BASO % 0.6 % (0-2.0); EOS % 4.8 % (0-4.5); HEMATOCRIT 35.8 % (32.4-45.2); HEMOGLOBIN 11.6 GM/dL (10.7-15.3); MCH 25.4 pg (25.7-33.7); MCHC 32.3 g/dl (32.0-36.0); MEAN CELL VOLUME 78.5 fl (80-96); MEAN PLT VOLUME 8.8 fl (7.5-11.1); MONO % 9.6 % (3.8-10.2); PLATELET COUNT 251 10^3/uL (134-434); RBC 4.55 M/mm3 (3.60-5.2); RDW 14.7 % (11.6-15.6); WHITE BLOOD COUNT 6.3 K/mm3 (4.0-10.0)
[2022-07-23 12:47] LABS: POTASSIUM 4.2 mmol/L (3.5-5.1)
[2022-07-23 12:50] LABS: BLOOD UREA NITROGEN 18.3 mg/dL (7-18)
[2022-07-23 12:52] LABS: BILIRUBIN,DIRECT 0.1 mg/dL (0.0-0.2)
[2022-07-23 12:53] LABS: CREATININE 0.9 mg/dL (0.55-1.3)
[2022-07-23 12:55] LABS: BILIRUBIN,TOTAL 0.4 mg/dL (0.2-1)
[2022-07-23 18:04] VITALS: BP 128/63; PULSE 69; RESP 18; TEMP 98.1
[2022-07-24 10:07] LABS: FOLLICLE STIMULATING HORMONE 3.7 mIU/mL (.); LUTEINIZING HORMONE < 0.3 mIU/mL (.)
== END 2022-07-23 17:00 | disposition home or self-care (01) ==
LOC: JONCCHEMO 11:51 → J7W 11:53 → JONCCHEMO 17:00
PROVIDERS: ATTEND Internal Medicine Hematology & Oncology
DX: Z51.11 Encounter for antineoplastic chemotherapy (principal); C50.512 Malignant neoplasm of lower-outer quadrant of left female breast
CPT/HCPCS: 36415; 80048; 80076; 82670; 83001; 83002; 83735; 85025; 96402; J9202

== ENCOUNTER 2022-09-17 09:28 | Day surgery (SDC) | payer OTHER ==
[2022-09-17] MEDS ORDERED: GOSERELIN ACETATE 3.6 MG IMPLANT SYRINGE SQ ONE (10:00)
[2022-09-17] MEDS ORDERED: LIDOCAINE HCL 1%, 10 MG/ML (20ML VIAL) ID ONE (10:00)
[2022-09-17 10:13] LABS: BASO % 0.5 % (0-2.0); EOS % 5.9 % (0-4.5); HEMATOCRIT 37.9 % (32.4-45.2); HEMOGLOBIN 11.8 GM/dL (10.7-15.3); LYMPH % 40.2 % (8-40); MCH 24.8 pg (25.7-33.7); MCHC 31.2 g/dl (32.0-36.0); MEAN CELL VOLUME 79.4 fl (80-96); MEAN PLT VOLUME 9.3 fl (7.5-11.1); MONO % 7.3 % (3.8-10.2); NEUT % 46.1 % (42.8-82.8); PLATELET COUNT 256 10^3/uL (134-434); RBC 4.77 M/mm3 (3.60-5.2); RDW 14.9 % (11.6-15.6); WHITE BLOOD COUNT 5.5 K/mm3 (4.0-10.0)
[2022-09-17 10:47] LABS: POTASSIUM 4.2 mmol/L (3.5-5.1)
[2022-09-17 10:49] LABS: ALBUMIN 3.8 g/dl (3.4-5.0); CALCIUM 9.2 mg/dL (8.5-10.1)
[2022-09-17 10:50] LABS: BLOOD UREA NITROGEN 19.3 mg/dL (7-18)
[2022-09-17 10:52] LABS: BILIRUBIN,DIRECT 0.1 mg/dL (0.0-0.2)
[2022-09-17 10:54] LABS: BILIRUBIN,TOTAL 0.3 mg/dL (0.2-1)
[2022-09-17 16:50] VITALS: BP 130/81; PULSE 70; RESP 18; TEMP 97.2
[2022-09-18 08:06] LABS: FOLLICLE STIMULATING HORMONE 3.7 mIU/mL (.); LUTEINIZING HORMONE 0.6 mIU/mL (.)
== END 2022-09-17 16:30 | disposition home or self-care (01) ==
LOC: JONCCHEMO 09:28 → J7W 09:35 → JONCCHEMO 16:30
PROVIDERS: ATTEND Internal Medicine Hematology & Oncology
DX: Z51.11 Encounter for antineoplastic chemotherapy (principal); C50.512 Malignant neoplasm of lower-outer quadrant of left female breast
CPT/HCPCS: 36415; 80048; 80076; 82306; 82378; 82670; 82728; 83001; 83002; 83540; 83550; 83735; 85025; 86300; 96402; J9202

== ENCOUNTER 2022-10-15 13:05 | Day surgery (SDC) | payer OTHER ==
[2022-10-15 14:14] LABS: BASO % 0.3 % (0-2.0); HEMATOCRIT 37.3 % (32.4-45.2); HEMOGLOBIN 11.5 GM/dL (10.7-15.3); LYMPH % 43.2 % (8-40); MCH 24.4 pg (25.7-33.7); MCHC 30.7 g/dl (32.0-36.0); MEAN CELL VOLUME 79.3 fl (80-96); MEAN PLT VOLUME 9.1 fl (7.5-11.1); MONO % 7.7 % (3.8-10.2); NEUT % 43.8 % (42.8-82.8); PLATELET COUNT 246 10^3/uL (134-434); RBC 4.71 M/mm3 (3.60-5.2); RDW 14.6 % (11.6-15.6)
[2022-10-15 14:19] LABS: POTASSIUM 3.7 mmol/L (3.5-5.1)
[2022-10-15 14:23] LABS: ALBUMIN 3.8 g/dl (3.4-5.0); BLOOD UREA NITROGEN 17.7 mg/dL (7-18); CALCIUM 9.1 mg/dL (8.5-10.1)
[2022-10-15 14:26] LABS: BILIRUBIN,DIRECT 0.1 mg/dL (0.0-0.2); CREATININE 0.9 mg/dL (0.55-1.3)
[2022-10-15 14:27] LABS: TOT PROT 7.7 g/dl (6.4-8.2)
[2022-10-15 14:28] LABS: BILIRUBIN,TOTAL 0.3 mg/dL (0.2-1)
[2022-10-15 17:10] VITALS: BP 139/78; PULSE 73; RESP 18; TEMP 98.5
[2022-10-16 08:09] LABS: CARCINOEMBRYONIC ANTIGEN 2.5 ng/mL (0.0-4.7); FOLLICLE STIMULATING HORMONE 3.9 mIU/mL (.); LUTEINIZING HORMONE 0.5 mIU/mL (.)
== END 2022-10-15 16:40 | disposition home or self-care (01) ==
LOC: JONCCHEMO 13:05 → J7W 13:08 → JONCCHEMO 16:40
PROVIDERS: ATTEND Internal Medicine Hematology & Oncology
DX: Z51.11 Encounter for antineoplastic chemotherapy (principal); C50.512 Malignant neoplasm of lower-outer quadrant of left female breast
CPT/HCPCS: 36415; 80048; 80076; 82306; 82378; 82670; 82728; 83001; 83002; 83540; 83550; 83735; 85025; 86300; 96402; J9202

== ENCOUNTER 2022-12-10 10:02 | Day surgery (SDC) | payer OTHER ==
[2022-12-10 11:38] LABS: BASO % 0.4 % (0-2.0); EOS % 4.5 % (0-4.5); HEMATOCRIT 34.6 % (32.4-45.2); HEMOGLOBIN 11.2 GM/dL (10.7-15.3); LYMPH % 37.9 % (8-40); MCHC 32.5 g/dl (32.0-36.0); MEAN CELL VOLUME 77.1 fl (80-96); MONO % 7.6 % (3.8-10.2); NEUT % 49.6 % (42.8-82.8); PLATELET COUNT 278 10^3/uL (134-434); RBC 4.48 M/mm3 (3.60-5.2); RDW 15.1 % (11.6-15.6); WHITE BLOOD COUNT 5.1 K/mm3 (4.0-10.0)
[2022-12-10 12:05] LABS: CALCIUM 9.2 mg/dL (8.5-10.1)
[2022-12-10 12:06] LABS: ALBUMIN 3.8 g/dl (3.4-5.0); BLOOD UREA NITROGEN 17.4 mg/dL (7-18)
[2022-12-10 12:08] LABS: CREATININE 0.9 mg/dL (0.55-1.3)
[2022-12-10 12:09] LABS: BILIRUBIN,DIRECT 0.1 mg/dL (0.0-0.2)
[2022-12-10 12:10] LABS: BILIRUBIN,TOTAL 0.6 mg/dL (0.2-1)
[2022-12-10 16:38] VITALS: BP 129/73; PULSE 68; RESP 20
[2022-12-11 08:07] LABS: CARCINOEMBRYONIC ANTIGEN 2.5 ng/mL (0.0-4.7); FOLLICLE STIMULATING HORMONE 5.8 mIU/mL (.); LUTEINIZING HORMONE < 0.3 mIU/mL (.)
== END 2022-12-10 15:30 | disposition home or self-care (01) ==
LOC: JONCCHEMO 10:02 → J7W 10:03 → JONCCHEMO 15:30
PROVIDERS: ATTEND Internal Medicine Hematology & Oncology
DX: Z51.11 Encounter for antineoplastic chemotherapy (principal); C50.512 Malignant neoplasm of lower-outer quadrant of left female breast; Z17.0 Estrogen receptor positive status [ER+]
CPT/HCPCS: 36415; 80048; 80076; 82306; 82378; 82670; 82728; 83001; 83002; 83540; 83550; 83735; 85025; 86300; 96402; J9202

== ENCOUNTER 2023-01-07 10:50 | Day surgery (SDC) | payer OTHER ==
[2023-01-07 13:29] LABS: BASO % 0.3 % (0-2.0); EOS % 4.3 % (0-4.5); HEMATOCRIT 35.3 % (32.4-45.2); HEMOGLOBIN 11.2 GM/dL (10.7-15.3); MCH 24.7 pg (25.7-33.7); MCHC 31.7 g/dl (32.0-36.0); MEAN CELL VOLUME 77.8 fl (80-96); MEAN PLT VOLUME 8.7 fl (7.5-11.1); MONO % 7.3 % (3.8-10.2); NEUT % 47.1 % (42.8-82.8); PLATELET COUNT 279 10^3/uL (134-434); RBC 4.54 M/mm3 (3.60-5.2); RDW 15.5 % (11.6-15.6); WHITE BLOOD COUNT 6.5 K/mm3 (4.0-10.0)
[2023-01-07 14:12] LABS: CALCIUM 9.7 mg/dL (8.5-10.1)
[2023-01-07 14:13] LABS: ALBUMIN 3.8 g/dl (3.4-5.0); BLOOD UREA NITROGEN 18.8 mg/dL (7-18)
[2023-01-07 14:15] LABS: BILIRUBIN,DIRECT 0.1 mg/dL (0.0-0.2)
[2023-01-07 14:16] LABS: TOT PROT 7.6 g/dl (6.4-8.2)
[2023-01-07 14:17] LABS: BILIRUBIN,TOTAL 0.3 mg/dL (0.2-1)
[2023-01-07 14:20] LABS: CREATININE 0.9 mg/dL (0.55-1.3)
[2023-01-07 17:38] VITALS: PULSE 87; RESP 16; TEMP 98.1
[2023-01-07 17:40] VITALS: BP 127/62
[2023-01-09 08:06] LABS: FOLLICLE STIMULATING HORMONE 6.6 mIU/mL (.); LUTEINIZING HORMONE < 0.3 mIU/mL (.)
[2023-01-09 13:07] LABS: CARCINOEMBRYONIC ANTIGEN 2.6 ng/mL (0.0-4.7)
== END 2023-01-07 14:55 | disposition home or self-care (01) ==
LOC: JONCCHEMO 10:50 → J7W 10:58 → JONCCHEMO 14:55
PROVIDERS: ATTEND Internal Medicine Hematology & Oncology
PROC: BH41ZZZ Ultrasonography of Left Breast (ICD-10-PCS; principal; 2023-01-07)
PROC: 3E01305 Introduction of Other Antineoplastic into Subcutaneous Tissue, Percutaneous Approach (ICD-10-PCS; 2023-01-07)
DX: Z51.11 Encounter for antineoplastic chemotherapy (principal); C50.912 Malignant neoplasm of unspecified site of left female breast; N64.4 Mastodynia
CPT/HCPCS: 36415; 76641-TC-LT; 80048; 80076; 82306; 82378; 82670; 82728; 83001; 83002; 83540; 83550; 83735; 85025; 86300; 96402; J9202

== ENCOUNTER 2023-02-03 09:26 | Day surgery (SDC) | payer OTHER ==
[2023-02-03] MEDS ORDERED: LIDOCAINE HCL 1%, 10 MG/ML (20ML VIAL) ID ONE (10:00)
[2023-02-03] MEDS ORDERED: GOSERELIN ACETATE 3.6 MG IMPLANT SYRINGE SQ ONE (10:00)
[2023-02-03 10:47] LABS: BASO % 0.4 % (0-2.0); EOS % 3.6 % (0-4.5); HEMATOCRIT 34.3 % (32.4-45.2); HEMOGLOBIN 10.8 GM/dL (10.7-15.3); LYMPH % 34.4 % (8-40); MCH 24.8 pg (25.7-33.7); MCHC 31.7 g/dl (32.0-36.0); MEAN CELL VOLUME 78.2 fl (80-96); MEAN PLT VOLUME 8.6 fl (7.5-11.1); MONO % 6.2 % (3.8-10.2); NEUT % 55.4 % (42.8-82.8); PLATELET COUNT 248 10^3/uL (134-434); RBC 4.38 M/mm3 (3.60-5.2); WHITE BLOOD COUNT 5.8 K/mm3 (4.0-10.0)
[2023-02-03 11:16] LABS: CALCIUM 9.2 mg/dL (8.5-10.1)
[2023-02-03 11:17] LABS: ALBUMIN 3.5 g/dl (3.4-5.0); MAGNESIUM 1.8 mg/dL (1.8-2.4)
[2023-02-03 11:18] LABS: BLOOD UREA NITROGEN 19.6 mg/dL (7-18)
[2023-02-03 11:20] LABS: BILIRUBIN,DIRECT 0.1 mg/dL (0.0-0.2); BILIRUBIN,TOTAL 0.4 mg/dL (0.2-1)
[2023-02-03 11:22] LABS: TOT PROT 7.7 g/dl (6.4-8.2)
[2023-02-03 17:09] VITALS: BP 104/71; PULSE 90; RESP 18; TEMP 98
[2023-02-04 08:09] LABS: CARCINOEMBRYONIC ANTIGEN 2.4 ng/mL (0.0-4.7); FOLLICLE STIMULATING HORMONE 6.8 mIU/mL (.); LUTEINIZING HORMONE < 0.3 mIU/mL (.)
== END 2023-02-03 15:45 | disposition home or self-care (01) ==
LOC: J7W 09:26 → JONCCHEMO 09:26
PROVIDERS: ATTEND Internal Medicine Hematology & Oncology
DX: Z51.11 Encounter for antineoplastic chemotherapy (principal); C50.912 Malignant neoplasm of unspecified site of left female breast
CPT/HCPCS: 36415; 80048; 80076; 82306; 82378; 82670; 82728; 83001; 83002; 83540; 83550; 83735; 85025; 86300; 96402; J9202

== ENCOUNTER 2023-03-04 09:32 | Day surgery (SDC) | payer OTHER ==
[2023-03-04 09:53] LABS: BASO % 0.9 % (0-2.0); HEMATOCRIT 36.5 % (32.4-45.2); HEMOGLOBIN 11.4 GM/dL (10.7-15.3); LYMPH % 37.6 % (8-40); MCH 24.4 pg (25.7-33.7); MCHC 31.2 g/dl (32.0-36.0); MEAN CELL VOLUME 78.3 fl (80-96); MEAN PLT VOLUME 8.5 fl (7.5-11.1); MONO % 6.6 % (3.8-10.2); NEUT % 50.9 % (42.8-82.8); PLATELET COUNT 247 10^3/uL (134-434); RBC 4.66 M/mm3 (3.60-5.2)
[2023-03-04] MEDS ORDERED: GOSERELIN ACETATE 3.6 MG IMPLANT SYRINGE SQ ONE (10:00)
[2023-03-04] MEDS ORDERED: LIDOCAINE HCL 1%, 10 MG/ML (20ML VIAL) ID ONE (10:00)
[2023-03-04 10:18] LABS: POTASSIUM 4.1 mmol/L (3.5-5.1)
[2023-03-04 10:20] LABS: CALCIUM 9.2 mg/dL (8.5-10.1)
[2023-03-04 10:21] LABS: ALBUMIN 3.4 g/dl (3.4-5.0); BLOOD UREA NITROGEN 17.3 mg/dL (7-18)
[2023-03-04 10:23] LABS: BILIRUBIN,DIRECT 0.1 mg/dL (0.0-0.2)
[2023-03-04 10:25] LABS: BILIRUBIN,TOTAL 0.4 mg/dL (0.2-1); TOT PROT 7.5 g/dl (6.4-8.2)
[2023-03-04 16:38] VITALS: BP 122/66; PULSE 84; RESP 20; TEMP 98.3
[2023-03-05 08:06] LABS: FOLLICLE STIMULATING HORMONE 8.1 mIU/mL (.); LUTEINIZING HORMONE < 0.3 mIU/mL (.)
== END 2023-03-04 15:30 | disposition home or self-care (01) ==
LOC: JONCCHEMO 09:32 → J7W 09:35 → JONCCHEMO 15:30
PROVIDERS: ATTEND Internal Medicine Hematology & Oncology
DX: Z51.11 Encounter for antineoplastic chemotherapy (principal); C50.912 Malignant neoplasm of unspecified site of left female breast
CPT/HCPCS: 36415; 80048; 80076; 82306; 82378; 82670; 82728; 83001; 83002; 83540; 83550; 85025; 86300; 96402; J9202

== ENCOUNTER 2023-04-01 10:26 | Day surgery (SDC) | payer OTHER ==
[2023-04-01 11:25] LABS: BASO % 0.4 % (0-2.0); EOS % 4.3 % (0-4.5); HEMATOCRIT 35.6 % (32.4-45.2); HEMOGLOBIN 11.6 GM/dL (10.7-15.3); LYMPH % 39.6 % (8-40); MCH 25.5 pg (25.7-33.7); MCHC 32.7 g/dl (32.0-36.0); MEAN PLT VOLUME 8.5 fl (7.5-11.1); MONO % 6.9 % (3.8-10.2); NEUT % 48.8 % (42.8-82.8); PLATELET COUNT 267 10^3/uL (134-434); RBC 4.56 M/mm3 (3.60-5.2); RDW 14.7 % (11.6-15.6); WHITE BLOOD COUNT 5.4 K/mm3 (4.0-10.0)
[2023-04-01 11:28] LABS: POTASSIUM 4.1 mmol/L (3.5-5.1)
[2023-04-01 11:30] LABS: CALCIUM 9.8 mg/dL (8.5-10.1)
[2023-04-01 11:31] LABS: BLOOD UREA NITROGEN 20.2 mg/dL (7-18); MAGNESIUM 1.9 mg/dL (1.8-2.4)
[2023-04-01 11:33] LABS: BILIRUBIN,DIRECT 0.1 mg/dL (0.0-0.2)
[2023-04-01 11:35] LABS: BILIRUBIN,TOTAL 0.5 mg/dL (0.2-1); TOT PROT 8.2 g/dl (6.4-8.2)
[2023-04-01] MEDS: GOSERELIN ACETATE 3.6 MG IMPLANT SYRINGE SQ ONE (15:30)
[2023-04-01] MEDS: LIDOCAINE HCL 1%, 10 MG/ML (20ML VIAL) ID ONE (15:30)
[2023-04-01 15:55] VITALS: BP 107/48; PULSE 82; RESP 18; TEMP 98.3
[2023-04-02 08:06] LABS: CARCINOEMBRYONIC ANTIGEN 2.8 ng/mL (0.0-4.7); FOLLICLE STIMULATING HORMONE 8.1 mIU/mL (.); LUTEINIZING HORMONE < 0.3 mIU/mL (.)
== END 2023-04-01 15:45 | disposition home or self-care (01) ==
LOC: JONCCHEMO 10:26 → J7W 10:27 → JONCCHEMO 15:45
PROVIDERS: ATTEND Internal Medicine Hematology & Oncology
DX: Z51.11 Encounter for antineoplastic chemotherapy (principal); C50.912 Malignant neoplasm of unspecified site of left female breast
CPT/HCPCS: 36415; 80048; 80076; 82306; 82378; 82670; 82728; 83001; 83002; 83540; 83550; 83735; 85025; 86300; 96402; J9202

== ENCOUNTER 2023-04-29 09:00 | Day surgery (SDC) | payer OTHER ==
[2023-04-29 09:58] LABS: BASO % 0.3 % (0-2.0); EOS % 4.8 % (0-4.5); HEMATOCRIT 33.5 % (32.4-45.2); HEMOGLOBIN 10.9 GM/dL (10.7-15.3); LYMPH % 37.8 % (8-40); MCH 25.4 pg (25.7-33.7); MCHC 32.6 g/dl (32.0-36.0); MEAN CELL VOLUME 77.9 fl (80-96); MEAN PLT VOLUME 8.5 fl (7.5-11.1); MONO % 7.2 % (3.8-10.2); NEUT % 49.9 % (42.8-82.8); PLATELET COUNT 244 10^3/uL (134-434); RBC 4.29 M/mm3 (3.60-5.2); RDW 15.1 % (11.6-15.6)
[2023-04-29 10:26] LABS: POTASSIUM 4.1 mmol/L (3.5-5.1)
[2023-04-29 10:29] LABS: ALBUMIN 3.7 g/dl (3.4-5.0); BLOOD UREA NITROGEN 17.2 mg/dL (7-18)
[2023-04-29 10:30] LABS: MAGNESIUM 1.9 mg/dL (1.8-2.4)
[2023-04-29 10:32] LABS: BILIRUBIN,DIRECT 0.1 mg/dL (0.0-0.2); CREATININE 0.9 mg/dL (0.55-1.3)
[2023-04-29 10:33] LABS: BILIRUBIN,TOTAL 0.4 mg/dL (0.2-1); TOT PROT 7.8 g/dl (6.4-8.2)
[2023-04-29] MEDS: LIDOCAINE HCL 1%, 10 MG/ML (20ML VIAL) ID ONE (15:23)
[2023-04-29] MEDS: GOSERELIN ACETATE 3.6 MG IMPLANT SYRINGE SQ ONE (15:23)
[2023-04-29 15:27] VITALS: BP 131/68; PULSE 64; RESP 18; TEMP 98
[2023-04-30 08:15] LABS: FOLLICLE STIMULATING HORMONE 8.1 mIU/mL (.); LUTEINIZING HORMONE < 0.3 mIU/mL (.)
== END 2023-04-29 15:30 | disposition home or self-care (01) ==
LOC: J7W 09:00 → JONCCHEMO 09:00
PROVIDERS: ATTEND Internal Medicine Hematology & Oncology
DX: Z51.11 Encounter for antineoplastic chemotherapy (principal); C50.912 Malignant neoplasm of unspecified site of left female breast
CPT/HCPCS: 36415; 80048; 80076; 82306; 82378; 82670; 82728; 83001; 83002; 83540; 83550; 83735; 85025; 86300; 96402; J9202

== ENCOUNTER 2023-05-27 09:16 | Day surgery (SDC) | payer OTHER ==
[2023-05-27 10:43] LABS: BASO % 0.2 % (0-2.0); EOS % 3.4 % (0-4.5); HEMATOCRIT 35.9 % (32.4-45.2); HEMOGLOBIN 11.4 GM/dL (10.7-15.3); MCH 24.9 pg (25.7-33.7); MCHC 31.8 g/dl (32.0-36.0); MEAN CELL VOLUME 78.2 fl (80-96); MEAN PLT VOLUME 8.6 fl (7.5-11.1); MONO % 7.1 % (3.8-10.2); NEUT % 65.3 % (42.8-82.8); PLATELET COUNT 248 10^3/uL (134-434); RBC 4.59 M/mm3 (3.60-5.2); RDW 14.9 % (11.6-15.6); WHITE BLOOD COUNT 6.9 K/mm3 (4.0-10.0)
[2023-05-27 11:11] LABS: ALBUMIN 3.7 g/dl (3.4-5.0); BLOOD UREA NITROGEN 17.7 mg/dL (7-18); CALCIUM 9.8 mg/dL (8.5-10.1); MAGNESIUM 1.8 mg/dL (1.8-2.4)
[2023-05-27 11:14] LABS: BILIRUBIN,DIRECT 0.1 mg/dL (0.0-0.2); CREATININE 0.9 mg/dL (0.55-1.3)
[2023-05-27 11:15] LABS: BILIRUBIN,TOTAL 0.4 mg/dL (0.2-1); TOT PROT 7.7 g/dl (6.4-8.2)
[2023-05-27] MEDS: LIDOCAINE HCL 1%, 10 MG/ML (20ML VIAL) ID ONE (14:06)
[2023-05-27] MEDS: GOSERELIN ACETATE 3.6 MG IMPLANT SYRINGE SQ ONE (14:06)
[2023-05-28 01:50] VITALS: BP 155/80; PULSE 88; RESP 20; TEMP 98.5
[2023-05-28 08:11] LABS: CARCINOEMBRYONIC ANTIGEN 2.4 ng/mL (0.0-4.7); FOLLICLE STIMULATING HORMONE 7.8 mIU/mL (.); LUTEINIZING HORMONE < 0.3 mIU/mL (.)
== END 2023-05-27 14:20 | disposition home or self-care (01) ==
LOC: J7W 09:16 → JONCCHEMO 09:16
PROVIDERS: ATTEND Internal Medicine Hematology & Oncology
DX: Z51.11 Encounter for antineoplastic chemotherapy (principal); C50.912 Malignant neoplasm of unspecified site of left female breast
CPT/HCPCS: 36415; 80048; 80076; 82306; 82378; 82670; 82728; 83001; 83002; 83540; 83550; 83735; 85025; 86300; 96402; J9202

== ENCOUNTER 2023-06-24 16:15 | Day surgery (SDC) | payer OTHER ==
[2023-06-24] MEDS: LIDOCAINE HCL 1%, 10 MG/ML (20ML VIAL) ID ONE (16:21)
[2023-06-24] MEDS: GOSERELIN ACETATE 3.6 MG IMPLANT SYRINGE SQ ONE (16:23)
[2023-06-24 17:21] LABS: BASO % 0.3 % (0-2.0); EOS % 3.6 % (0-4.5); HEMOGLOBIN 11.1 GM/dL (10.7-15.3); LYMPH % 34.9 % (8-40); MCH 24.8 pg (25.7-33.7); MCHC 31.8 g/dl (32.0-36.0); MEAN CELL VOLUME 78.1 fl (80-96); MEAN PLT VOLUME 8.8 fl (7.5-11.1); MONO % 7.5 % (3.8-10.2); NEUT % 53.7 % (42.8-82.8); PLATELET COUNT 276 10^3/uL (134-434); RBC 4.47 M/mm3 (3.60-5.2); RDW 15.2 % (11.6-15.6)
[2023-06-24 17:43] LABS: CHLORIDE 106 mmol/L (98-107); POTASSIUM 4.1 mmol/L (3.5-5.1); SODIUM 139 mmol/L (136-145)
[2023-06-24 17:47] LABS: ALBUMIN 3.7 g/dl (3.4-5.0); ANION GAP 5 mmol/L (4-13); CALCIUM 9.4 mg/dL (8.5-10.1); CO2 27 mmol/L (21-32); MAGNESIUM 2.1 mg/dL (1.8-2.4)
[2023-06-24 17:48] LABS: GLUCOSE,RANDOM 89 mg/dL (74-106)
[2023-06-24 17:50] LABS: BILIRUBIN,DIRECT 0.1 mg/dL (0.0-0.2); SGPT/ALT 30 U/L (13-61)
[2023-06-24 17:52] LABS: TOT PROT 7.9 g/dl (6.4-8.2)
[2023-06-24 17:53] LABS: ALK PHOS 104 U/L (45-117); SGOT/AST 22 U/L (15-37)
[2023-06-24 17:54] LABS: BILIRUBIN,TOTAL 0.3 mg/dL (0.2-1)
[2023-06-24 18:37] VITALS: BP 145/73; PULSE 70; RESP 20; TEMP 98.7
[2023-06-24 18:56] LABS: IRON SERUM 40 ug/dL (50-175); TOTAL IRON BINDING CAPACITY 377 ug/dL (250-450)
[2023-06-26 16:07] LABS: FOLLICLE STIMULATING HORMONE 7.8 mIU/mL (.); LUTEINIZING HORMONE < 0.3 mIU/mL (.)
== END 2023-06-24 18:41 | disposition home or self-care (01) ==
LOC: J7W 16:15 → JONCCHEMO 16:15
PROVIDERS: ATTEND Internal Medicine Hematology & Oncology
DX: Z51.11 Encounter for antineoplastic chemotherapy (principal); C50.912 Malignant neoplasm of unspecified site of left female breast
CPT/HCPCS: 36415; 80048; 80076; 82306; 82378; 82670; 82728; 83001; 83002; 83540; 83550; 83735; 85025; 86300; 96402; J9202

== ENCOUNTER 2023-08-05 09:22 | Day surgery (SDC) | payer OTHER ==
[2023-08-05 09:46] LABS: BASO % 0.5 % (0-2.0); EOS % 5.1 % (0-4.5); HEMATOCRIT 36.1 % (32.4-45.2); HEMOGLOBIN 11.2 GM/dL (10.7-15.3); LYMPH % 38.5 % (8-40); MCH 24.3 pg (25.7-33.7); MEAN CELL VOLUME 78.4 fl (80-96); MEAN PLT VOLUME 8.6 fl (7.5-11.1); MONO % 5.9 % (3.8-10.2); PLATELET COUNT 246 10^3/uL (134-434); RBC 4.61 M/mm3 (3.60-5.2); RDW 15.2 % (11.6-15.6)
[2023-08-05 09:49] LABS: CHLORIDE 106 mmol/L (98-107); SODIUM 141 mmol/L (136-145)
[2023-08-05 09:55] LABS: CALCIUM 9.7 mg/dL (8.5-10.1)
[2023-08-05 09:56] LABS: ALBUMIN 3.6 g/dl (3.4-5.0); ANION GAP 7 mmol/L (4-13); BLOOD UREA NITROGEN 15.2 mg/dL (7-18); CO2 28 mmol/L (21-32); GLUCOSE,RANDOM 116 mg/dL (74-106); MAGNESIUM 1.9 mg/dL (1.8-2.4)
[2023-08-05 09:57] LABS: SGOT/AST 16 U/L (15-37)
[2023-08-05 09:58] LABS: BILIRUBIN,TOTAL 0.3 mg/dL (0.2-1); TOT PROT 7.4 g/dl (6.4-8.2)
[2023-08-05 09:59] LABS: ALK PHOS 121 U/L (45-117); IRON SERUM 52 ug/dL (50-175); SGPT/ALT 30 U/L (13-61); TOTAL IRON BINDING CAPACITY 382 ug/dL (250-450)
[2023-08-05 10:00] LABS: BILIRUBIN,DIRECT 0.1 mg/dL (0.0-0.2)
[2023-08-05] MEDS: GOSERELIN ACETATE 3.6 MG IMPLANT SYRINGE SQ ONE (11:55)
[2023-08-05] MEDS: LIDOCAINE HCL 1%, 10 MG/ML (20ML VIAL) ID ONE (12:04)
[2023-08-05 16:43] VITALS: BP 163/59; PULSE 58; RESP 20; TEMP 97.7
[2023-08-06 08:10] LABS: CARCINOEMBRYONIC ANTIGEN 2.1 ng/mL (0.0-4.7); FOLLICLE STIMULATING HORMONE 6.6 mIU/mL (.); LUTEINIZING HORMONE < 0.3 mIU/mL (.)
== END 2023-08-05 12:20 | disposition home or self-care (01) ==
LOC: JONCCHEMO 09:22 → J7W 09:22 → JONCCHEMO 12:20
PROVIDERS: ATTEND Internal Medicine Hematology & Oncology
DX: Z51.11 Encounter for antineoplastic chemotherapy (principal); C50.912 Malignant neoplasm of unspecified site of left female breast; Z17.0 Estrogen receptor positive status [ER+]
CPT/HCPCS: 36415; 80048; 80076; 82306; 82378; 82670; 82728; 83001; 83002; 83540; 83550; 83735; 85025; 86300; 96402; J9202

== ENCOUNTER 2023-09-02 09:31 | Day surgery (SDC) | payer OTHER ==
[2023-09-02 11:04] LABS: BASO % 0.3 % (0-2.0); EOS % 6.4 % (0-4.5); HEMATOCRIT 35.2 % (32.4-45.2); HEMOGLOBIN 11.1 GM/dL (10.7-15.3); LYMPH % 36.6 % (8-40); MCH 24.6 pg (25.7-33.7); MCHC 31.6 g/dl (32.0-36.0); MEAN CELL VOLUME 77.8 fl (80-96); MEAN PLT VOLUME 8.9 fl (7.5-11.1); MONO % 7.5 % (3.8-10.2); NEUT % 49.2 % (42.8-82.8); PLATELET COUNT 244 10^3/uL (134-434); RBC 4.52 M/mm3 (3.60-5.2); RDW 14.9 % (11.6-15.6); WHITE BLOOD COUNT 5.4 K/mm3 (4.0-10.0)
[2023-09-02 11:28] LABS: CHLORIDE 108 mmol/L (98-107); POTASSIUM 3.9 mmol/L (3.5-5.1); SODIUM 143 mmol/L (136-145)
[2023-09-02 11:30] LABS: ALBUMIN 3.8 g/dl (3.4-5.0); ANION GAP 6 mmol/L (4-13); BLOOD UREA NITROGEN 15.3 mg/dL (7-18); CALCIUM 9.3 mg/dL (8.5-10.1); CO2 28 mmol/L (21-32); GLUCOSE,RANDOM 98 mg/dL (74-106); MAGNESIUM 1.9 mg/dL (1.8-2.4)
[2023-09-02 11:33] LABS: BILIRUBIN,DIRECT 0.1 mg/dL (0.0-0.2); CREATININE 0.9 mg/dL (0.55-1.3); SGOT/AST 19 U/L (15-37); SGPT/ALT 28 U/L (13-61)
[2023-09-02 11:35] LABS: BILIRUBIN,TOTAL 0.5 mg/dL (0.2-1); TOT PROT 7.6 g/dl (6.4-8.2)
[2023-09-02 11:36] LABS: ALK PHOS 110 U/L (45-117)
[2023-09-02 11:52] LABS: IRON SERUM 66 ug/dL (50-175); TOTAL IRON BINDING CAPACITY 356 ug/dL (250-450)
[2023-09-02] MEDS: GOSERELIN ACETATE 3.6 MG IMPLANT SYRINGE SQ ONE (14:42)
[2023-09-02] MEDS: LIDOCAINE HCL 1%, 10 MG/ML (20ML VIAL) ID ONE (14:44)
[2023-09-02 18:59] VITALS: BP 158/80; PULSE 83; RESP 18; TEMP 98
[2023-09-03 08:11] LABS: CARCINOEMBRYONIC ANTIGEN 2.3 ng/mL (0.0-4.7); FOLLICLE STIMULATING HORMONE 7.1 mIU/mL (.); LUTEINIZING HORMONE < 0.3 mIU/mL (.)
== END 2023-09-02 15:00 | disposition home or self-care (01) ==
LOC: JONCCHEMO 09:31 → J7W 09:34 → JONCCHEMO 15:00
PROVIDERS: ATTEND Internal Medicine Hematology & Oncology
DX: Z51.11 Encounter for antineoplastic chemotherapy (principal); C50.912 Malignant neoplasm of unspecified site of left female breast; Z17.0 Estrogen receptor positive status [ER+]
CPT/HCPCS: 36415; 80048; 80076; 82306; 82378; 82670; 82728; 83001; 83002; 83540; 83550; 83735; 85025; 86300; 96402; J9202

== ENCOUNTER 2023-09-30 08:51 | Day surgery (SDC) | payer OTHER ==
[2023-09-30 09:32] LABS: BASO % 0.5 % (0-2.0); EOS % 4.9 % (0-4.5); HEMATOCRIT 33.6 % (32.4-45.2); HEMOGLOBIN 10.6 GM/dL (10.7-15.3); LYMPH % 41.6 % (8-40); MCH 24.8 pg (25.7-33.7); MCHC 31.5 g/dl (32.0-36.0); MEAN CELL VOLUME 78.8 fl (80-96); MEAN PLT VOLUME 8.4 fl (7.5-11.1); MONO % 6.8 % (3.8-10.2); NEUT % 46.2 % (42.8-82.8); PLATELET COUNT 245 10^3/uL (134-434); RBC 4.26 M/mm3 (3.60-5.2); RDW 15.1 % (11.6-15.6); WHITE BLOOD COUNT 4.8 K/mm3 (4.0-10.0)
[2023-09-30 09:55] LABS: ALBUMIN 3.7 g/dl (3.4-5.0)
[2023-09-30 09:59] LABS: BILIRUBIN,DIRECT 0.1 mg/dL (0.0-0.2); BILIRUBIN,TOTAL 0.5 mg/dL (0.2-1)
[2023-09-30 10:01] LABS: TOT PROT 7.7 g/dl (6.4-8.2)
[2023-09-30 10:18] LABS: CHLORIDE 106 mmol/L (98-107); POTASSIUM 3.8 mmol/L (3.5-5.1); SODIUM 140 mmol/L (136-145)
[2023-09-30 10:20] LABS: CALCIUM 9.6 mg/dL (8.5-10.1)
[2023-09-30 10:21] LABS: ANION GAP 5 mmol/L (4-13); BLOOD UREA NITROGEN 18.3 mg/dL (7-18); CO2 29 mmol/L (21-32); GLUCOSE,RANDOM 106 mg/dL (74-106)
[2023-09-30 10:24] LABS: IRON SERUM 63 ug/dL (50-175); TOTAL IRON BINDING CAPACITY 365 ug/dL (250-450)
[2023-09-30] MEDS: GOSERELIN ACETATE 3.6 MG IMPLANT SYRINGE SQ ONE (14:20)
[2023-09-30] MEDS: LIDOCAINE HCL 1%, 10 MG/ML (20ML VIAL) ID ONE (14:21)
[2023-09-30 16:47] VITALS: BP 165/72; PULSE 67; RESP 20; TEMP 98.3
[2023-10-01 08:11] LABS: FOLLICLE STIMULATING HORMONE 7.8 mIU/mL (.); LUTEINIZING HORMONE < 0.3 mIU/mL (.)
[2023-10-01 08:11] LABS: CARCINOEMBRYONIC ANTIGEN 2.1 ng/mL (0.0-4.7)
== END 2023-09-30 14:30 | disposition home or self-care (01) ==
LOC: JONCCHEMO 08:51 → J7W 08:52 → JONCCHEMO 14:30
PROVIDERS: ATTEND Internal Medicine Hematology & Oncology
DX: Z51.11 Encounter for antineoplastic chemotherapy (principal); C50.912 Malignant neoplasm of unspecified site of left female breast; Z17.0 Estrogen receptor positive status [ER+]
CPT/HCPCS: 36415; 80048; 80076; 82306; 82378; 82670; 82728; 83001; 83002; 83540; 83550; 83735; 85025; 86300; 96402; J9202

== ENCOUNTER 2023-10-28 09:05 | Day surgery (SDC) | payer OTHER ==
[2023-10-28 09:59] LABS: BASO % 0.3 % (0-2.0); EOS % 5.2 % (0-4.5); HEMATOCRIT 35.7 % (32.4-45.2); HEMOGLOBIN 11.4 GM/dL (10.7-15.3); LYMPH % 38.6 % (8-40); MCH 24.9 pg (25.7-33.7); MCHC 32.1 g/dl (32.0-36.0); MEAN CELL VOLUME 77.8 fl (80-96); MEAN PLT VOLUME 8.7 fl (7.5-11.1); MONO % 5.7 % (3.8-10.2); NEUT % 50.2 % (42.8-82.8); PLATELET COUNT 251 10^3/uL (134-434); RBC 4.59 M/mm3 (3.60-5.2); RDW 15.1 % (11.6-15.6); WHITE BLOOD COUNT 4.7 K/mm3 (4.0-10.0)
[2023-10-28 10:29] LABS: CHLORIDE 107 mmol/L (98-107); POTASSIUM 4.3 mmol/L (3.5-5.1); SODIUM 139 mmol/L (136-145)
[2023-10-28 10:30] LABS: CALCIUM 9.5 mg/dL (8.5-10.1)
[2023-10-28 10:31] LABS: ALBUMIN 3.6 g/dl (3.4-5.0); ANION GAP 5 mmol/L (4-13); BLOOD UREA NITROGEN 22.7 mg/dL (7-18); CO2 28 mmol/L (21-32); GLUCOSE,RANDOM 118 mg/dL (74-106)
[2023-10-28 10:32] LABS: MAGNESIUM 1.9 mg/dL (1.8-2.4)
[2023-10-28 10:34] LABS: BILIRUBIN,DIRECT 0.1 mg/dL (0.0-0.2); SGPT/ALT 25 U/L (13-61)
[2023-10-28 10:35] LABS: IRON SERUM 50 ug/dL (50-175); SGOT/AST 16 U/L (15-37); TOTAL IRON BINDING CAPACITY 378 ug/dL (250-450)
[2023-10-28 10:36] LABS: BILIRUBIN,TOTAL 0.4 mg/dL (0.2-1); TOT PROT 7.6 g/dl (6.4-8.2)
[2023-10-28 10:37] LABS: ALK PHOS 113 U/L (45-117)
[2023-10-28] MEDS: LIDOCAINE HCL 1%, 10 MG/ML (20ML VIAL) ID ONE (14:31)
[2023-10-28] MEDS: GOSERELIN ACETATE 3.6 MG IMPLANT SYRINGE SQ ONE (14:32)
[2023-10-28 17:52] VITALS: BP 139/69; PULSE 63; RESP 18; TEMP 98.2
[2023-10-29 08:11] LABS: FOLLICLE STIMULATING HORMONE 7.3 mIU/mL (.); LUTEINIZING HORMONE < 0.3 mIU/mL (.)
== END 2023-10-28 14:50 | disposition home or self-care (01) ==
LOC: JONCCHEMO 09:05 → J7W 09:08 → JONCCHEMO 14:50
PROVIDERS: ATTEND Internal Medicine Hematology & Oncology
DX: Z51.11 Encounter for antineoplastic chemotherapy (principal); C50.912 Malignant neoplasm of unspecified site of left female breast; Z17.0 Estrogen receptor positive status [ER+]
CPT/HCPCS: 36415; 80048; 80076; 82306; 82378; 82670; 82728; 83001; 83002; 83540; 83550; 83735; 85025; 86300; 96402; J9202

== ENCOUNTER 2023-11-25 10:12 | Day surgery (SDC) | payer OTHER ==
[2023-11-25 11:20] LABS: BASO % 0.3 % (0-2.0); EOS % 4.5 % (0-4.5); HEMATOCRIT 35.2 % (32.4-45.2); LYMPH % 38.8 % (8-40); MCH 24.3 pg (25.7-33.7); MCHC 31.3 g/dl (32.0-36.0); MEAN CELL VOLUME 77.7 fl (80-96); MEAN PLT VOLUME 8.8 fl (7.5-11.1); MONO % 6.4 % (3.8-10.2); PLATELET COUNT 260 10^3/uL (134-434); RBC 4.53 M/mm3 (3.60-5.2); RDW 14.9 % (11.6-15.6); WHITE BLOOD COUNT 4.6 K/mm3 (4.0-10.0)
[2023-11-25 11:40] LABS: CHLORIDE 107 mmol/L (98-107); SODIUM 139 mmol/L (136-145)
[2023-11-25 11:42] LABS: ANION GAP 4 mmol/L (4-13); BLOOD UREA NITROGEN 19.9 mg/dL (7-18); CALCIUM 9.7 mg/dL (8.5-10.1); CO2 28 mmol/L (21-32); GLUCOSE,RANDOM 101 mg/dL (74-106)
[2023-11-25 11:44] LABS: ALBUMIN 3.8 g/dl (3.4-5.0); MAGNESIUM 1.8 mg/dL (1.8-2.4)
[2023-11-25 11:46] LABS: BILIRUBIN,DIRECT 0.1 mg/dL (0.0-0.2)
[2023-11-25 11:48] LABS: IRON SERUM 65 ug/dL (50-175)
[2023-11-25 11:49] LABS: TOT PROT 7.6 g/dl (6.4-8.2); TOTAL IRON BINDING CAPACITY 359 ug/dL (250-450)
[2023-11-25] MEDS: LIDOCAINE HCL 1%, 10 MG/ML (20ML VIAL) ID ONE (16:08)
[2023-11-25] MEDS: GOSERELIN ACETATE 3.6 MG IMPLANT SYRINGE SQ ONE (16:09)
[2023-11-25 16:47] VITALS: BP 134/71; PULSE 67; RESP 20; TEMP 97.8
[2023-11-26 08:12] LABS: CARCINOEMBRYONIC ANTIGEN 2.3 ng/mL (0.0-4.7)
[2023-11-27 00:07] LABS: FOLLICLE STIMULATING HORMONE 7.1 mIU/mL (.); LUTEINIZING HORMONE < 0.3 mIU/mL (.)
== END 2023-11-25 16:30 | disposition home or self-care (01) ==
LOC: JONCCHEMO 10:12 → J7W 10:13 → JONCCHEMO 16:30
PROVIDERS: ATTEND Internal Medicine Hematology & Oncology
DX: Z51.11 Encounter for antineoplastic chemotherapy (principal); C50.912 Malignant neoplasm of unspecified site of left female breast; Z17.0 Estrogen receptor positive status [ER+]
CPT/HCPCS: 36415; 80048; 80076; 82378; 82670; 82728; 83001; 83002; 83540; 83550; 83735; 85025; 86300; 96402; J9202

== ENCOUNTER 2023-12-23 10:27 | Day surgery (SDC) | payer OTHER ==
[2023-12-23 10:34] LABS: BASO % 0.5 % (0-2.0); EOS % 4.5 % (0-4.5); HEMATOCRIT 34.9 % (32.4-45.2); HEMOGLOBIN 10.9 GM/dL (10.7-15.3); LYMPH % 39.2 % (8-40); MCH 24.6 pg (25.7-33.7); MCHC 31.1 g/dl (32.0-36.0); MEAN PLT VOLUME 8.1 fl (7.5-11.1); MONO % 8.1 % (3.8-10.2); NEUT % 47.7 % (42.8-82.8); PLATELET COUNT 324 10^3/uL (134-434); RBC 4.42 M/mm3 (3.60-5.2); RDW 15.5 % (11.6-15.6); WHITE BLOOD COUNT 5.4 K/mm3 (4.0-10.0)
[2023-12-23 10:53] LABS: CHLORIDE 106 mmol/L (98-107); SODIUM 139 mmol/L (136-145)
[2023-12-23 10:55] LABS: CALCIUM 9.3 mg/dL (8.5-10.1)
[2023-12-23 10:56] LABS: ALBUMIN 3.8 g/dl (3.4-5.0); ANION GAP 5 mmol/L (4-13); BLOOD UREA NITROGEN 15.1 mg/dL (7-18); CO2 28 mmol/L (21-32); GLUCOSE,RANDOM 100 mg/dL (74-106); MAGNESIUM 2.1 mg/dL (1.8-2.4)
[2023-12-23 10:59] LABS: BILIRUBIN,DIRECT 0.1 mg/dL (0.0-0.2); SGOT/AST 20 U/L (15-37); SGPT/ALT 30 U/L (13-61)
[2023-12-23 11:01] LABS: BILIRUBIN,TOTAL 0.4 mg/dL (0.2-1); TOT PROT 7.8 g/dl (6.4-8.2)
[2023-12-23 11:02] LABS: ALK PHOS 108 U/L (45-117)
[2023-12-23] MEDS: GOSERELIN ACETATE 3.6 MG IMPLANT SYRINGE SQ ONE (14:30)
[2023-12-23] MEDS: LIDOCAINE HCL 1%, 10 MG/ML (20ML VIAL) ID ONE (14:32)
[2023-12-23 15:14] VITALS: BP 135/75; PULSE 60; RESP 16; TEMP 98
[2023-12-26 10:07] LABS: LUTEINIZING HORMONE < 0.3 mIU/mL (.)
== END 2023-12-23 14:45 | disposition home or self-care (01) ==
LOC: J7W 10:27 → JONCCHEMO 10:27
PROVIDERS: ATTEND Internal Medicine Hematology & Oncology
DX: Z51.11 Encounter for antineoplastic chemotherapy (principal); C50.912 Malignant neoplasm of unspecified site of left female breast
CPT/HCPCS: 36415; 80048; 80076; 82306; 82378; 82670; 82728; 83001; 83002; 83540; 83550; 83735; 85025; 86300; 96401; J9202

== ENCOUNTER 2024-01-27 09:10 | Day surgery (SDC) | payer OTHER ==
[2024-01-27 10:16] LABS: BASO % 0.3 % (0-2.0); EOS % 7.7 % (0-4.5); HEMATOCRIT 36.5 % (32.4-45.2); HEMOGLOBIN 11.4 GM/dL (10.7-15.3); LYMPH % 36.7 % (8-40); MCH 24.3 pg (25.7-33.7); MCHC 31.3 g/dl (32.0-36.0); MEAN CELL VOLUME 77.7 fl (80-96); MEAN PLT VOLUME 8.7 fl (7.5-11.1); MONO % 11.1 % (3.8-10.2); NEUT % 44.2 % (42.8-82.8); PLATELET COUNT 231 10^3/uL (134-434); RBC 4.69 M/mm3 (3.60-5.2); RDW 15.5 % (11.6-15.6); WHITE BLOOD COUNT 3.3 K/mm3 (4.0-10.0)
[2024-01-27 11:00] LABS: CHLORIDE 108 mmol/L (98-107); POTASSIUM 4.4 mmol/L (3.5-5.1); SODIUM 140 mmol/L (136-145)
[2024-01-27 11:01] LABS: BLOOD UREA NITROGEN 22.9 mg/dL (7-18)
[2024-01-27 11:02] LABS: ANION GAP 6 mmol/L (4-13); CALCIUM 9.7 mg/dL (8.5-10.1); CO2 27 mmol/L (21-32); GLUCOSE,RANDOM 99 mg/dL (74-106)
[2024-01-27 11:04] LABS: ALBUMIN 3.5 g/dl (3.4-5.0)
[2024-01-27 11:06] LABS: BILIRUBIN,DIRECT 0.1 mg/dL (0.0-0.2); IRON SERUM 61 ug/dL (50-175)
[2024-01-27 11:08] LABS: BILIRUBIN,TOTAL 0.4 mg/dL (0.2-1); TOTAL IRON BINDING CAPACITY 386 ug/dL (250-450)
[2024-01-27 11:09] LABS: TOT PROT 7.4 g/dl (6.4-8.2)
[2024-01-27] MEDS: GOSERELIN ACETATE 3.6 MG IMPLANT SYRINGE SQ ONE (13:35)
[2024-01-27] MEDS: LIDOCAINE HCL 1%, 10 MG/ML (20ML VIAL) ID ONE (13:35)
[2024-01-27 13:42] VITALS: BP 120/72; PULSE 70; RESP 20; TEMP 98.7
[2024-01-28 10:09] LABS: CARCINOEMBRYONIC ANTIGEN 2.6 ng/mL (0.0-4.7); FOLLICLE STIMULATING HORMONE 5.9 mIU/mL (.); LUTEINIZING HORMONE < 0.3 mIU/mL (.)
== END 2024-01-27 13:45 | disposition home or self-care (01) ==
LOC: JONCCHEMO 09:10 → J7W 09:11 → JONCCHEMO 13:45
PROVIDERS: ATTEND Internal Medicine Hematology & Oncology
DX: Z51.11 Encounter for antineoplastic chemotherapy (principal); C50.912 Malignant neoplasm of unspecified site of left female breast
CPT/HCPCS: 36415; 80048; 80076; 82306; 82378; 82670; 82728; 83001; 83002; 83540; 83550; 83735; 85025; 86300; 96402; J9202

== ENCOUNTER 2024-02-24 13:53 | Day surgery (SDC) | payer OTHER ==
[2024-02-24] MEDS: GOSERELIN ACETATE 3.6 MG IMPLANT SYRINGE SQ ONE (14:05)
[2024-02-24] MEDS: LIDOCAINE HCL 1%, 10 MG/ML (20ML VIAL) ID ONE (14:06)
[2024-02-24 14:31] LABS: BASO % 0.4 % (0-2.0); EOS % 3.6 % (0-4.5); HEMATOCRIT 38.7 % (32.4-45.2); HEMOGLOBIN 11.9 GM/dL (10.7-15.3); LYMPH % 42.1 % (8-40); MCH 23.8 pg (25.7-33.7); MCHC 30.7 g/dl (32.0-36.0); MEAN CELL VOLUME 77.4 fl (80-96); MEAN PLT VOLUME 8.7 fl (7.5-11.1); MONO % 6.4 % (3.8-10.2); NEUT % 47.5 % (42.8-82.8); PLATELET COUNT 266 10^3/uL (134-434); RDW 15.4 % (11.6-15.6); WHITE BLOOD COUNT 5.5 K/mm3 (4.0-10.0)
[2024-02-24 15:16] LABS: CHLORIDE 107 mmol/L (98-107); POTASSIUM 3.9 mmol/L (3.5-5.1); SODIUM 140 mmol/L (136-145)
[2024-02-24 15:19] LABS: ALBUMIN 3.7 g/dl (3.4-5.0); ANION GAP 7 mmol/L (4-13); CALCIUM 9.6 mg/dL (8.5-10.1); CO2 26 mmol/L (21-32); MAGNESIUM 1.9 mg/dL (1.8-2.4)
[2024-02-24 15:20] LABS: GLUCOSE,RANDOM 120 mg/dL (74-106)
[2024-02-24 15:21] LABS: CREATININE 1.1 mg/dL (0.55-1.3); SGOT/AST 20 U/L (15-37); SGPT/ALT 25 U/L (13-61)
[2024-02-24 15:23] LABS: BILIRUBIN,DIRECT 0.1 mg/dL (0.0-0.2); IRON SERUM 45 ug/dL (50-175); IRON SERUM 47 ug/dL (50-175); TOTAL IRON BINDING CAPACITY 368 ug/dL (250-450)
[2024-02-24 15:24] LABS: BILIRUBIN,TOTAL 0.2 mg/dL (0.2-1)
[2024-02-24 15:25] LABS: TOT PROT 7.9 g/dl (6.4-8.2)
[2024-02-24 15:27] LABS: ALK PHOS 120 U/L (45-117)
[2024-02-24 16:31] VITALS: BP 144/79; PULSE 69; RESP 20; TEMP 97.5
[2024-02-26 08:08] LABS: FOLLICLE STIMULATING HORMONE 6.8 mIU/mL (.); LUTEINIZING HORMONE < 0.3 mIU/mL (.)
== END 2024-02-24 14:20 | disposition home or self-care (01) ==
LOC: JONCCHEMO 13:53
PROVIDERS: ATTEND Internal Medicine Hematology & Oncology
DX: Z51.11 Encounter for antineoplastic chemotherapy (principal); C50.912 Malignant neoplasm of unspecified site of left female breast
CPT/HCPCS: 36415; 80048; 80076; 82306; 82378; 82670; 82728; 83001; 83002; 83540; 83550; 83735; 85025; 86300; 96402; J9202

== ENCOUNTER 2024-04-20 11:30 | Day surgery (SDC) | payer OTHER ==
[2024-04-20] MEDS: GOSERELIN ACETATE 3.6 MG IMPLANT SYRINGE SQ ONE (11:49)
[2024-04-20 12:34] LABS: BASO % 0.4 % (0-2.0); EOS % 4.1 % (0-4.5); HEMATOCRIT 35.3 % (32.4-45.2); HEMOGLOBIN 11.2 GM/dL (10.7-15.3); LYMPH % 46.8 % (8-40); MCH 24.6 pg (25.7-33.7); MCHC 31.6 g/dl (32.0-36.0); MEAN CELL VOLUME 77.7 fl (80-96); MEAN PLT VOLUME 8.5 fl (7.5-11.1); MONO % 7.3 % (3.8-10.2); NEUT % 41.4 % (42.8-82.8); PLATELET COUNT 238 10^3/uL (134-434); RBC 4.54 M/mm3 (3.60-5.2); RDW 15.2 % (11.6-15.6); WHITE BLOOD COUNT 4.6 K/mm3 (4.0-10.0)
[2024-04-20 13:07] LABS: CHLORIDE 106 mmol/L (98-107); POTASSIUM 4.1 mmol/L (3.5-5.1); SODIUM 139 mmol/L (136-145)
[2024-04-20 13:13] LABS: ALBUMIN 3.8 g/dl (3.4-5.0); ANION GAP 6 mmol/L (4-13); BLOOD UREA NITROGEN 19.4 mg/dL (7-18); CALCIUM 9.5 mg/dL (8.5-10.1); CO2 28 mmol/L (21-32); GLUCOSE,RANDOM 83 mg/dL (74-106); MAGNESIUM 1.9 mg/dL (1.8-2.4)
[2024-04-20 13:16] LABS: BILIRUBIN,DIRECT 0.1 mg/dL (0.0-0.2); CREATININE 0.9 mg/dL (0.55-1.3); IRON SERUM 67 ug/dL (50-175); SGOT/AST 15 U/L (15-37); SGPT/ALT 21 U/L (13-61); TOTAL IRON BINDING CAPACITY 378 ug/dL (250-450)
[2024-04-20 13:17] LABS: BILIRUBIN,TOTAL 0.4 mg/dL (0.2-1)
[2024-04-20 13:18] LABS: TOT PROT 7.6 g/dl (6.4-8.2)
[2024-04-20 13:19] LABS: ALK PHOS 99 U/L (45-117)
[2024-04-20] MEDS: LIDOCAINE HCL 1%, 10 MG/ML (20ML VIAL) ID ONE (16:23)
[2024-04-20 16:26] VITALS: BP 131/74; PULSE 93; RESP 20; TEMP 98.3
[2024-04-21 10:09] LABS: CARCINOEMBRYONIC ANTIGEN 2.5 ng/mL (0.0-4.7)
[2024-04-21 12:07] LABS: FOLLICLE STIMULATING HORMONE 7.5 mIU/mL (.); LUTEINIZING HORMONE < 0.3 mIU/mL (.)
== END 2024-04-20 12:00 | disposition home or self-care (01) ==
LOC: J7W 11:30 → JONCCHEMO 11:30
PROVIDERS: ATTEND Internal Medicine Hematology & Oncology
DX: Z51.11 Encounter for antineoplastic chemotherapy (principal); C50.912 Malignant neoplasm of unspecified site of left female breast; Z17.0 Estrogen receptor positive status [ER+]
CPT/HCPCS: 36415; 80048; 80076; 82306; 82378; 82670; 82728; 83001; 83002; 83540; 83550; 83735; 85025; 86300; 96401; J9202

== ENCOUNTER 2024-05-18 09:43 | Day surgery (SDC) | payer OTHER ==
[2024-05-18 10:37] LABS: ABSOLUTE IMMATURE GRANULOCYTES 0.02 x10^3/uL (0.0-0.031); BASOPHILS # 0.02 x10^3/uL (0.01-0.08); EOSINOPHIL % 4.7 % (0.7-5.8); EOSINOPHILS # 0.22 x10^3/uL (0.04-0.36); HEMATOCRIT 37.9 % (34.1-44.9); HEMOGLOBIN 10.9 g/dL (11.2-15.7); MCHC 28.8 g/dl (32.2-35.5); MEAN CELL VOLUME 82.4 fl (79.4-94.8); MEAN PLT VOLUME 10.4 fl (9.4-12.3); MONOCYTE # 0.35 x10^3/uL (0.24-0.86); MONOCYTE % 7.5 % (4.7-12.5); PLATELET COUNT 233 x10^3/uL (182-369); RDW 14.1 % (12.3-16.6)
[2024-05-18 11:08] LABS: CHLORIDE 104 mmol/L (98-107); SODIUM 140 mmol/L (136-145)
[2024-05-18 11:09] LABS: CALCIUM 9.5 mg/dL (8.5-10.1); MAGNESIUM 1.9 mg/dL (1.8-2.4)
[2024-05-18 11:10] LABS: ALBUMIN 3.6 g/dl (3.4-5.0); ANION GAP 5 mmol/L (4-13); BLOOD UREA NITROGEN 21.3 mg/dL (7-18); CO2 30 mmol/L (21-32); GLUCOSE,RANDOM 98 mg/dL (74-106)
[2024-05-18 11:12] LABS: CREATININE 0.9 mg/dL (0.55-1.3); IRON SERUM 51 ug/dL (50-175); SGOT/AST 17 U/L (15-37); SGPT/ALT 22 U/L (13-61)
[2024-05-18 11:13] LABS: BILIRUBIN,DIRECT 0.1 mg/dL (0.0-0.2); TOTAL IRON BINDING CAPACITY 363 ug/dL (250-450)
[2024-05-18 11:15] LABS: BILIRUBIN,TOTAL 0.4 mg/dL (0.2-1); TOT PROT 7.4 g/dl (6.4-8.2)
[2024-05-18 11:16] LABS: ALK PHOS 102 U/L (45-117)
[2024-05-18] MEDS: GOSERELIN ACETATE 3.6 MG IMPLANT SYRINGE SQ ONE (14:15)
[2024-05-18] MEDS: LIDOCAINE HCL 1%, 10 MG/ML (20ML VIAL) ID ONE (15:24)
[2024-05-18 15:26] VITALS: BP 142/87; PULSE 78; RESP 18; TEMP 98.2
== END 2024-05-18 14:30 | disposition home or self-care (01) ==
LOC: JONCCHEMO 09:43
PROVIDERS: ATTEND Internal Medicine Hematology & Oncology
DX: Z51.11 Encounter for antineoplastic chemotherapy (principal); C50.912 Malignant neoplasm of unspecified site of left female breast; Z17.0 Estrogen receptor positive status [ER+]
CPT/HCPCS: 36415; 80048; 80076; 82306; 82378; 82670; 82728; 83540; 83550; 83735; 85025; 86300; 96402; J9202

== ENCOUNTER 2024-06-15 09:45 | Day surgery (SDC) | payer OTHER ==
[2024-06-15 10:26] LABS: ABSOLUTE IMMATURE GRANULOCYTES 0.02 x10^3/uL (0.0-0.031); BASOPHILS # 0.02 x10^3/uL (0.01-0.08); EOSINOPHIL % 4.9 % (0.7-5.8); EOSINOPHILS # 0.25 x10^3/uL (0.04-0.36); HEMATOCRIT 36.2 % (34.1-44.9); HEMOGLOBIN 10.8 g/dL (11.2-15.7); MCHC 29.8 g/dl (32.2-35.5); MEAN CELL VOLUME 82.8 fl (79.4-94.8); MEAN PLT VOLUME 10.5 fl (9.4-12.3); MONOCYTE # 0.36 x10^3/uL (0.24-0.86); MONOCYTE % 7.1 % (4.7-12.5); PLATELET COUNT 236 x10^3/uL (182-369); RDW 13.9 % (12.3-16.6)
[2024-06-15 11:01] LABS: CHLORIDE 107 mmol/L (98-107); POTASSIUM 4.2 mmol/L (3.5-5.1); SODIUM 140 mmol/L (136-145)
[2024-06-15 11:03] LABS: MAGNESIUM 1.8 mg/dL (1.8-2.4)
[2024-06-15 11:05] LABS: ALBUMIN 3.7 g/dl (3.4-5.0); ANION GAP 4 mmol/L (4-13); BLOOD UREA NITROGEN 18.8 mg/dL (7-18); CO2 28 mmol/L (21-32); GLUCOSE,RANDOM 95 mg/dL (74-106)
[2024-06-15 11:07] LABS: CREATININE 0.9 mg/dL (0.55-1.3); SGOT/AST 15 U/L (15-37); SGPT/ALT 23 U/L (13-61)
[2024-06-15 11:08] LABS: BILIRUBIN,DIRECT 0.1 mg/dL (0.0-0.2); TOTAL IRON BINDING CAPACITY 335 ug/dL (250-450)
[2024-06-15 11:10] LABS: BILIRUBIN,TOTAL 0.4 mg/dL (0.2-1); TOT PROT 7.3 g/dl (6.4-8.2)
[2024-06-15 11:11] LABS: ALK PHOS 100 U/L (45-117)
[2024-06-15 12:27] LABS: IRON SERUM 39 ug/dL (50-175)
[2024-06-15] MEDS: LIDOCAINE HCL 1%, 10 MG/ML (20ML VIAL) ID ONE (15:21)
[2024-06-15] MEDS: GOSERELIN ACETATE 3.6 MG IMPLANT SYRINGE SQ ONE (15:21)
[2024-06-15 16:03] VITALS: BP 133/68; PULSE 75; RESP 16; TEMP 98.2
== END 2024-06-15 15:30 | disposition home or self-care (01) ==
LOC: JONCCHEMO 09:45 → J7W 09:46 → JONCCHEMO 15:30
PROVIDERS: ATTEND Internal Medicine Hematology & Oncology
DX: Z51.11 Encounter for antineoplastic chemotherapy (principal); C50.912 Malignant neoplasm of unspecified site of left female breast
CPT/HCPCS: 36415; 80048; 80076; 82306; 82378; 82670; 82728; 83540; 83550; 83735; 85025; 86300; 96402; J9202

== ENCOUNTER 2024-07-13 09:14 | Day surgery (SDC) | payer OTHER ==
[2024-07-13 09:52] LABS: ABSOLUTE IMMATURE GRANULOCYTES 0.01 x10^3/uL (0.0-0.031); BASOPHILS # 0.02 x10^3/uL (0.01-0.08); EOSINOPHIL % 4.5 % (0.7-5.8); EOSINOPHILS # 0.22 x10^3/uL (0.04-0.36); HEMATOCRIT 38.4 % (34.1-44.9); HEMOGLOBIN 11.3 g/dL (11.2-15.7); MCHC 29.4 g/dl (32.2-35.5); MEAN CELL VOLUME 82.6 fl (79.4-94.8); MEAN PLT VOLUME 10.6 fl (9.4-12.3); MONOCYTE # 0.33 x10^3/uL (0.24-0.86); MONOCYTE % 6.8 % (4.7-12.5); PLATELET COUNT 264 x10^3/uL (182-369); RDW 14.1 % (12.3-16.6)
[2024-07-13 10:10] LABS: CHLORIDE 106 mmol/L (98-107); POTASSIUM 4.3 mmol/L (3.5-5.1); SODIUM 139 mmol/L (136-145)
[2024-07-13 10:12] LABS: ALBUMIN 3.8 g/dl (3.4-5.0); ANION GAP 5 mmol/L (4-13); BLOOD UREA NITROGEN 17.6 mg/dL (7-18); CALCIUM 9.7 mg/dL (8.5-10.1); CO2 28 mmol/L (21-32); MAGNESIUM 1.9 mg/dL (1.8-2.4)
[2024-07-13 10:13] LABS: GLUCOSE,RANDOM 108 mg/dL (74-106)
[2024-07-13 10:15] LABS: BILIRUBIN,DIRECT 0.1 mg/dL (0.0-0.2); SGOT/AST 19 U/L (15-37); SGPT/ALT 30 U/L (13-61)
[2024-07-13 10:17] LABS: BILIRUBIN,TOTAL 0.4 mg/dL (0.2-1); IRON SERUM 58 ug/dL (50-175); TOT PROT 7.6 g/dl (6.4-8.2)
[2024-07-13 10:18] LABS: ALK PHOS 119 U/L (45-117); TOTAL IRON BINDING CAPACITY 368 ug/dL (250-450)
[2024-07-13] MEDS: GOSERELIN ACETATE 3.6 MG IMPLANT SYRINGE SQ ONE (15:32)
[2024-07-13] MEDS: LIDOCAINE HCL 1%, 10 MG/ML (20ML VIAL) ID ONE (15:32)
[2024-07-13 15:36] VITALS: BP 127/49; PULSE 61; RESP 20; TEMP 98.1
[2024-07-14 08:08] LABS: CARCINOEMBRYONIC ANTIGEN 3.1 ng/mL (0.0-4.7); FOLLICLE STIMULATING HORMONE 5.9 mIU/mL (.); LUTEINIZING HORMONE < 0.3 mIU/mL (.)
== END 2024-07-13 15:42 | disposition home or self-care (01) ==
LOC: JONCCHEMO 09:14 → J7W 09:16 → JONCCHEMO 15:42
PROVIDERS: ATTEND Internal Medicine Hematology & Oncology
DX: Z51.11 Encounter for antineoplastic chemotherapy (principal); C50.912 Malignant neoplasm of unspecified site of left female breast
CPT/HCPCS: 36415; 80048; 80076; 82306; 82378; 82670; 82728; 83001; 83002; 83540; 83550; 83735; 85025; 86300; 96402; J9202

== ENCOUNTER 2024-08-11 14:48 | Day surgery (SDC) | payer OTHER ==
[2024-08-11] MEDS: GOSERELIN ACETATE 3.6 MG IMPLANT SYRINGE SQ ONE (15:09)
[2024-08-11] MEDS: LIDOCAINE HCL 1%, 10 MG/ML (20ML VIAL) ID ONE (15:09)
[2024-08-11 15:13] LABS: ABSOLUTE IMMATURE GRANULOCYTES 0.01 x10^3/uL (0.0-0.031); BASOPHILS # 0.03 x10^3/uL (0.01-0.08); EOSINOPHIL % 4.1 % (0.7-5.8); EOSINOPHILS # 0.23 x10^3/uL (0.04-0.36); HEMATOCRIT 37.7 % (34.1-44.9); HEMOGLOBIN 11.2 g/dL (11.2-15.7); MCHC 29.7 g/dl (32.2-35.5); MEAN CELL VOLUME 84.2 fl (79.4-94.8); MEAN PLT VOLUME 10.1 fl (9.4-12.3); MONOCYTE # 0.43 x10^3/uL (0.24-0.86); MONOCYTE % 7.6 % (4.7-12.5); PLATELET COUNT 287 x10^3/uL (182-369); RDW 13.9 % (12.3-16.6)
[2024-08-11 15:31] LABS: CHLORIDE 108 mmol/L (98-107); POTASSIUM 3.7 mmol/L (3.5-5.1); SODIUM 142 mmol/L (136-145)
[2024-08-11 15:35] LABS: ALBUMIN 3.9 g/dl (3.4-5.0); ANION GAP 8 mmol/L (4-13); BLOOD UREA NITROGEN 19.6 mg/dL (7-18); CALCIUM 9.7 mg/dL (8.5-10.1); CO2 26 mmol/L (21-32); GLUCOSE,RANDOM 144 mg/dL (74-106); MAGNESIUM 1.8 mg/dL (1.8-2.4)
[2024-08-11 15:37] LABS: TOTAL IRON BINDING CAPACITY 368 ug/dL (250-450)
[2024-08-11 15:38] LABS: BILIRUBIN,DIRECT 0.1 mg/dL (0.0-0.2); CREATININE 1.1 mg/dL (0.55-1.3)
[2024-08-11 15:39] LABS: SGOT/AST 22 U/L (15-37); SGPT/ALT 29 U/L (13-61)
[2024-08-11 15:40] LABS: BILIRUBIN,TOTAL 0.4 mg/dL (0.2-1); TOT PROT 7.6 g/dl (6.4-8.2)
[2024-08-11 15:41] LABS: ALK PHOS 117 U/L (45-117)
[2024-08-11 16:27] VITALS: BP 124/68; PULSE 87; RESP 18; TEMP 98.3
[2024-08-12 08:07] LABS: FOLLICLE STIMULATING HORMONE 6.8 mIU/mL (.); LUTEINIZING HORMONE < 0.3 mIU/mL (.)
== END 2024-08-11 15:29 | disposition home or self-care (01) ==
LOC: JONCCHEMO 14:48 → J7W 14:58 → JONCCHEMO 15:29
PROVIDERS: ATTEND Internal Medicine Hematology & Oncology
DX: Z51.11 Encounter for antineoplastic chemotherapy (principal); C50.912 Malignant neoplasm of unspecified site of left female breast; Z17.0 Estrogen receptor positive status [ER+]
CPT/HCPCS: 36415; 80048; 80076; 82306; 82378; 82670; 82728; 83001; 83002; 83540; 83550; 83735; 85025; 86300; J9202

== ENCOUNTER 2024-11-09 09:01 | Day surgery (SDC) | payer OTHER ==
[2024-11-09 10:06] LABS: ABSOLUTE IMMATURE GRANULOCYTES 0.03 x10^3/uL (0.0-0.031); BASOPHILS # 0.02 x10^3/uL (0.01-0.08); EOSINOPHIL % 5.0 % (0.7-5.8); EOSINOPHILS # 0.32 x10^3/uL (0.04-0.36); MCHC 29.3 g/dl (32.2-35.5); MEAN CELL VOLUME 84.0 fl (79.4-94.8); MEAN PLT VOLUME 10.2 fl (9.4-12.3); MONOCYTE # 0.36 x10^3/uL (0.24-0.86); MONOCYTE % 5.6 % (4.7-12.5); RDW 14.3 % (12.3-16.6)
[2024-11-09 10:37] LABS: GLUCOSE,RANDOM 122 mg/dL (74-106); TOT PROT 8.1 g/dl (6.4-8.2)
[2024-11-09 10:38] LABS: CO2 29 mmol/L (21-32)
[2024-11-09 10:40] LABS: ALK PHOS 115 U/L (40-150)
[2024-11-09 10:42] LABS: IRON SERUM 61 ug/dL (50-175)
[2024-11-09 10:43] LABS: CREATININE 0.99 mg/dL (0.55-1.3); IRON SERUM 62 ug/dL (50-175); SGOT/AST 24 U/L (5-34); SGPT/ALT 30 U/L (0-55)
[2024-11-09 15:10] VITALS: BP 142/63; PULSE 60; RESP 20; TEMP 97.7
[2024-11-09] MEDS: GOSERELIN ACETATE 3.6 MG IMPLANT SYRINGE SQ ONE (15:13)
[2024-11-09] MEDS: LIDOCAINE HCL 1%, 10 MG/ML (20ML VIAL) ID ONE (15:20)
[2024-11-10 18:09] LABS: LUTEINIZING HORMONE < 0.3 mIU/mL (.)
== END 2024-11-09 15:57 | disposition home or self-care (01) ==
LOC: JONCCHEMO 09:01
PROVIDERS: ATTEND Internal Medicine Hematology & Oncology
DX: Z51.11 Encounter for antineoplastic chemotherapy (principal); C50.912 Malignant neoplasm of unspecified site of left female breast; Z17.0 Estrogen receptor positive status [ER+]
CPT/HCPCS: 36415; 80048; 80076; 82306; 82378; 82670; 82728; 83001; 83002; 83540; 83550; 83735; 85025; 86300; 96402; J9202

== ENCOUNTER 2024-12-07 12:51 | Day surgery (SDC) | payer OTHER ==
[2024-12-07 13:23] LABS: ABSOLUTE IMMATURE GRANULOCYTES 0.02 x10^3/uL (0.0-0.031); BASOPHILS # 0.03 x10^3/uL (0.01-0.08); EOSINOPHIL % 5.2 % (0.7-5.8); EOSINOPHILS # 0.33 x10^3/uL (0.04-0.36); MCHC 29.2 g/dl (32.2-35.5); MEAN CELL VOLUME 84.4 fl (79.4-94.8); MEAN PLT VOLUME 10.5 fl (9.4-12.3); MONOCYTE # 0.33 x10^3/uL (0.24-0.86); MONOCYTE % 5.2 % (4.7-12.5); RDW 14.5 % (12.3-16.6)
[2024-12-07 13:40] LABS: GLUCOSE,RANDOM 161 mg/dL (74-106)
[2024-12-07 13:42] LABS: CO2 28 mmol/L (21-32); TOT PROT 7.3 g/dl (6.4-8.2)
[2024-12-07 13:44] LABS: ALK PHOS 98.0 U/L (40-150)
[2024-12-07 13:46] LABS: CREATININE 0.91 mg/dL (0.55-1.3)
[2024-12-07 13:47] LABS: IRON SERUM 50 ug/dL (50-175); SGOT/AST 25.0 U/L (5-34); SGPT/ALT 26.0 U/L (0-55)
[2024-12-07] MEDS: GOSERELIN ACETATE 3.6 MG IMPLANT SYRINGE SQ ONE (15:15)
[2024-12-07] MEDS: LIDOCAINE HCL 1%, 10 MG/ML (20ML VIAL) ID ONE (15:15)
[2024-12-07 16:55] VITALS: BP 142/76; PULSE 75; RESP 18; TEMP 98.4
[2024-12-08 10:10] LABS: LUTEINIZING HORMONE < 0.3 mIU/mL (7.7-58.5)
== END 2024-12-07 15:30 | disposition home or self-care (01) ==
LOC: JONCCHEMO 12:51 → J7W 12:52 → JONCCHEMO 15:30
PROVIDERS: ATTEND Internal Medicine Hematology & Oncology
DX: Z51.11 Encounter for antineoplastic chemotherapy (principal); C50.912 Malignant neoplasm of unspecified site of left female breast; Z17.0 Estrogen receptor positive status [ER+]
CPT/HCPCS: 36415; 80048; 80076; 82306; 82378; 82670; 82728; 83001; 83002; 83540; 83550; 83735; 85025; 86300; 96402; J9202